=== PATIENT | female | born 1940 | race Caucasian/White ===

== ENCOUNTER → 2021-02-02 15:25 | Outpatient (BNVA) | payer MEDICARE, SELFPAY | PROVIDERS: Visit Provider Family Medicine | DX: E11.9 Type 2 diabetes mellitus without complications (principal); I10 Essential (primary) hypertension; E78.00 Pure hypercholesterolemia, unspecified | CPT/HCPCS: 80053; 80061; 83036; 84443; 85025 ==

== ENCOUNTER → 2021-09-06 14:20 | Outpatient (BNVA) | payer MEDICARE, SELFPAY | PROVIDERS: Visit Provider Family Medicine | DX: E11.9 Type 2 diabetes mellitus without complications (principal); E78.00 Pure hypercholesterolemia, unspecified; I10 Essential (primary) hypertension; F32.9 Major depressive disorder, single episode, unspecified | CPT/HCPCS: 80053; 80061; 83036; 85025 ==

== ENCOUNTER 2021-12-06 06:00 | Outpatient (RCR) | payer MEDICARE, SELFPAY | END 2021-12-23 23:59 | disposition home or self-care (01) | LOC: SPT 06:00 | PROVIDERS: PCP Family Medicine; Referring Provider Family Medicine; Visit Provider Family Medicine | DX: R27.0 Ataxia, unspecified (principal); M62.81 Muscle weakness (generalized) | CPT/HCPCS: 97110; 97112; 97162 ==

== ENCOUNTER → 2021-12-23 10:35 | Outpatient (BNVA) | payer MEDICARE, SELFPAY | PROVIDERS: PCP Family Medicine; Visit Provider Family Medicine | DX: E11.9 Type 2 diabetes mellitus without complications (principal) | CPT/HCPCS: 80053; 83036 ==

== ENCOUNTER 2021-12-24 06:00 | Outpatient (RCR) | payer MEDICARE, SELFPAY | END 2022-01-23 23:59 | disposition home or self-care (01) | LOC: SPT 06:00 | PROVIDERS: PCP Family Medicine; Referring Provider Family Medicine; Visit Provider Family Medicine | DX: R27.0 Ataxia, unspecified (principal) | CPT/HCPCS: 97110; 97112 ==

== ENCOUNTER 2022-01-13 13:34 | Outpatient (CLI) | payer MEDICARE, SELFPAY ==
--- NOTE | 2022-01-13 13:51 | MM_ITS ---
WS: [id number] BILATERAL 3D TOMOSYNTHESIS DIGITAL SCREENING MAMMOGRAPHY WITH CAD CLINICAL INFORMATION: SCREENING HISTORY: Screening mammogram. No current complaints. COMPARISON: None. TECHNIQUE: Bilateral CC and MLO views. FINDINGS: The breasts are composed of heterogeneous fibroglandular density tissue, which can limit the detectio n of small underlying mass lesions. Vascular calcification. Punctate and lucent centered calcificatio ns. No suspicious mass, asymmetry, calcifications, or architectural distortion. No evidence of malign pedro. MM/[id number] IMPRESSION: BI-RADS: 2-Benign FOLLOW UP: 1 Year Follow-up Recommend return to annual screening mammography.
== END 2022-01-13 13:35 | disposition home or self-care (01) ==
PROVIDERS: PCP Family Medicine; Visit Provider Family Medicine
DX: Z12.31 Encounter for screening mammogram for malignant neoplasm of breast (principal)
CPT/HCPCS: 77063; 77067

== ENCOUNTER → 2022-03-21 14:32 | Outpatient (BNVA) | payer MEDICARE, SELFPAY | PROVIDERS: PCP Family Medicine; Visit Provider Family Medicine | DX: R82.90 Unspecified abnormal findings in urine (principal); N39.0 Urinary tract infection, site not specified; E11.9 Type 2 diabetes mellitus without complications | CPT/HCPCS: 81000 ==

== ENCOUNTER → 2022-05-16 14:51 | Outpatient (BNVA) | payer MEDICARE, SELFPAY | PROVIDERS: PCP Family Medicine; Visit Provider Family Medicine | DX: E11.9 Type 2 diabetes mellitus without complications (principal); E78.00 Pure hypercholesterolemia, unspecified; I10 Essential (primary) hypertension | CPT/HCPCS: 80053; 80061; 83036 ==

== ENCOUNTER → 2022-10-04 11:41 | Outpatient (BNVA) | payer MEDICARE, SELFPAY | PROVIDERS: PCP Family Medicine; Visit Provider Family Medicine | DX: E78.00 Pure hypercholesterolemia, unspecified (principal); I10 Essential (primary) hypertension; E11.9 Type 2 diabetes mellitus without complications; M51.9 Unspecified thoracic, thoracolumbar and lumbosacral intervertebral disc disorder; F33.0 Major depressive disorder, recurrent, mild | CPT/HCPCS: 80061; 83036; 85025 ==

== ENCOUNTER 2023-01-17 13:52 | Outpatient (CLI) | payer MEDICARE, SELFPAY ==
--- NOTE | 2023-01-17 14:20 | MM_ITS ---
WS: [id number] BILATERAL 3D TOMOSYNTHESIS DIGITAL SCREENING MAMMOGRAPHY WITH CAD CLINICAL INFORMATION: SCREENING HISTORY: Screening mammogram. No current complaints. COMPARISON: 2021 TECHNIQUE: Bilateral CC and MLO views. FINDINGS: The breasts are composed of heterogeneous fibroglandular density tissue, which can limit the detectio n of small underlying mass lesions. No suspicious mass, asymmetry, calcifications, or architectural d istortion. No evidence of malignancy. Vascular calcification. Incidental punctate calcifications. MM/[id number] IMPRESSION: BI-RADS: 2-Benign FOLLOW UP: 1 Year Follow-up Recommend return to annual screening mammography.
== END 2023-01-17 13:53 | disposition home or self-care (01) ==
LOC: RAD 14:03 → MOBLMAM 14:19
PROVIDERS: PCP Family Medicine; Visit Provider Family Medicine
DX: Z12.31 Encounter for screening mammogram for malignant neoplasm of breast (principal)
CPT/HCPCS: 77063; 77067

== ENCOUNTER → 2023-03-28 12:14 | Outpatient (BNVA) | payer MEDICARE, SELFPAY | PROVIDERS: PCP Family Medicine; Visit Provider Family Medicine | DX: E11.9 Type 2 diabetes mellitus without complications (principal); I10 Essential (primary) hypertension | CPT/HCPCS: 80053; 83036; 85025 ==

== ENCOUNTER → 2023-04-13 15:57 | Outpatient (BNVA) | payer MEDICARE, SELFPAY | PROVIDERS: PCP Family Medicine; Visit Provider Family Medicine | DX: R39.9 Unspecified symptoms and signs involving the genitourinary system (principal) | CPT/HCPCS: 87077; 87086; 87184 ==

== ENCOUNTER 2023-05-09 12:01 | Outpatient (CLI) | payer MEDICARE, SELFPAY ==
--- NOTE | 2023-05-09 12:30 | CT_ITS ---
WS: [id number] CT ABDOMEN PELVIS TECHNIQUE: Contrast-enhanced CT of the abdomen and pelvis with coronal and sagittal reformatted image s. CLINICAL INFORMATION: pelvic pain and passing vaginal clots 12+ hours COMPARISON: None. DLP: 426.[address] scans at [facility] use at least one of these dose optimization techniques: automated e xposure control; mA and/or kV adjustment per patient size (includes targeted exams where dose is matc hed to clinical indication); or iterative reconstruction. FINDINGS: Prior cholecystectomy and hysterectomy. Evidence of prior sigmoid colon anastomosis. Lung bases are w ell aerated. Bibasilar atelectasis. Coronary calcification. Diffuse fatty infiltration of the liver. Normal portal vein and splenic vein. Fatty atrophy of the pancreas. Normal caliber abdominal aorta. A ortic calcification. Wall thickening with enhancement involving the duodenal C-loop suspicious for du odenitis. This can be followed up with endoscopy. Recommend clinical correlation. Enhancing lesion in the liver dome with central enhancement measuring 1.4 cm technically indeterminan t but suspicious for cavernous hemangioma. Incidental mild bilateral adrenal thickening. Normal renal parenchymal enhancement. No hydronephrosis. Bilateral renal cortical scarring. Bilateral renal cysts . Tiny fat-containing umbilical hernia. Small bladder cystocele. LEFT dorsal bladder diverticulum measuring 13 mm prior. Sigmoid colon anasto mosis. No evidence of high-grade small or large bowel obstruction. No abdominal or pelvic lymphadenop athy. No inguinal lymphadenopathy. IMPRESSION: 1. Prior cholecystectomy and hysterectomy. 2. Evidence of prior sigmoid resection with anastomosis. 3. Moderate esophageal renal hernia. Evidence of gastritis and duodenitis. 4. Diffuse fatty filtration of the liver. 5. Enhancing lesion in liver dome measuring 1.4 cm nonspecific but may represent cavernous hemangiom a. Recommend 3 to 6-month follow-up CT abdomen pelvis with liver protocol. 6. Bilateral renal cortical scarring with simple renal cysts. No hydronephrosis in either kidney. 7. Small bladder cystocele and small LEFT dorsal bladder diverticulum measuring 13 mm.
[2023-05-09] MEDS: iohexol 350 mg/mL 500 mL Btl (per mL) IV (12:47)
== END 2023-05-09 12:02 | disposition home or self-care (01) ==
LOC: RAD 12:01
PROVIDERS: PCP Family Medicine; Visit Provider Family Medicine
DX: N93.9 Abnormal uterine and vaginal bleeding, unspecified (principal); R10.2 Pelvic and perineal pain; Z90.49 Acquired absence of other specified parts of digestive tract; Z90.710 Acquired absence of both cervix and uterus; K44.9 Diaphragmatic hernia without obstruction or gangrene; K29.70 Gastritis, unspecified, without bleeding; K29.80 Duodenitis without bleeding; K76.9 Liver disease, unspecified; N28.1 Cyst of kidney, acquired; N81.10 Cystocele, unspecified; N32.3 Diverticulum of bladder
CPT/HCPCS: 74177; Q9967

== ENCOUNTER → 2023-06-22 11:23 | Outpatient (BNVA) | payer MEDICARE, SELFPAY | PROVIDERS: PCP Family Medicine; Visit Provider Family Medicine | DX: E11.9 Type 2 diabetes mellitus without complications (principal) | CPT/HCPCS: 80048 ==

== ENCOUNTER → 2023-10-20 15:05 | Outpatient (BNVA) | payer MEDICARE, SELFPAY | PROVIDERS: PCP Family Medicine; Visit Provider Obstetrics & Gynecology | DX: N93.9 Abnormal uterine and vaginal bleeding, unspecified (principal) | CPT/HCPCS: 81000; 87086 ==

== ENCOUNTER → 2024-01-22 11:03 | Outpatient (BNVA) | payer MEDICARE, SELFPAY | PROVIDERS: PCP Family Medicine; Visit Provider Family Medicine | DX: I10 Essential (primary) hypertension (principal) | CPT/HCPCS: 80053; 83036; 85025 ==

== ENCOUNTER → 2024-01-29 09:39 | Day surgery (SDC) | payer MEDICARE, SELFPAY | LOC: OPS 01-30 09:40 | PROVIDERS: PCP Family Medicine; Visit Provider Obstetrics & Gynecology | DX: Z01.818 Encounter for other preprocedural examination (principal) | CPT/HCPCS: 93005 ==

== ENCOUNTER 2024-02-06 11:06 | Observation (INO) | payer MEDICARE, SELFPAY ==
[2024-01-29 10:52] LABS: Basophils # 0.1 10^3/uL (0.0-0.1); Basophils % 0.9 %; Eosinophils # 0.3 10^3/uL (0.0-0.8); Eosinophils % 4.6 %; Hematocrit 42.3 % (36-47); Lymphocytes % 18.4 %; Mean Corpuscular HGB Conc 31.9 g/dL (30-55); Mean Corpuscular Hemoglobin 26.5 pg (27-33); Mean Corpuscular Volume 83.1 fl (85-98); Monocytes # 0.4 10^3/uL (0.2-0.9); Monocytes % 7.8 %; Neutrophils # 3.83 10^3/uL (1.8-7.7); Neutrophils % 67.9 %; Nucleated Red Blood Cells % 0 %; Platelet Count 147 10^3/cmm (157-399); Red Blood Count 5.09 10^6/uL (3.85-5.65); Red Cell Distribution Width 15.7 % (12.1-15.1); White Blood Count 5.64 10^3/uL (3.29-11.43)
--- NOTE | 2024-01-29 10:57 | ECG_ITS ---
[facility] Test Date: 2024-01-29 Pat Name: Loretta Francois Department: Room: Gender: Female [employer]: : 1940 Requested By: David Mata Order Number: [id number] Susie MD: Rex Diop M.D. Measurements Intervals [place] Rate: 63 P: 36 AZ: 184 QRS: -45 QRSD: 88 T: 90 QT: 372 QTc: 383 Interpretive Statements SINUS RHYTHM WITH MARKED SINUS ARRHYTHMIA LOW QRS VOLTAGE IN PRECORDIAL LEADS [QRS DEFLECTION < 1.0 mV IN CHEST LEADS] LEFT ANTERIOR FASCICULAR BLOCK [QRS AXIS <= -45, QR IN I, RS IN II] POSSIBLE ANTERIOR MYOCARDIAL INFARCTION , OF INDETERMINATE AGE [30 ms Q WAVE IN V3/V4, OR R < 0.2 mV IN V4] No previous ECG available for comparison Electronically Signed On 01-29-2024 14:17:16 CDT by Rex Diop M.D. [id number]
[2024-01-29 11:04] LABS: Charge for UA Resulting for Rev
[2024-01-29 11:08] LABS: Bilirubin Urine Negative (Negative); Blood Urine 2+ (Negative); Glucose Urine UA 3+ (Normal); Ketones Urine Negative (Negative); Leukocyte Esterase Urine Negative (Negative); Nitrate Urine Negative (Negative); Protein Urine Negative (Negative); Urine Appearance Clear (CLEAR); Urine Color Yellow (Yellow); Urobilinogen Urine 0.2 mg/dL (Negative)
[2024-01-29 11:13] LABS: Bacteria Urine Trace /hpf; Hyaline Casts Urine 0.81 /lpf; Squamous Epithelial Cell Urine 0-5 /hpf (0-5); WBC Urine 21-50 /hpf (0-5)
[2024-01-29 11:14] LABS: Specific Gravity, Urine 1.031 (1.005-1.030)
[2024-01-29 11:15] LABS: Add Urine Culture? Yes
[2024-01-29 11:18] LABS: Alanine Aminotransferase 20 U/L (0-33); Albumin Level 4.7 g/dL (3.5-5.2); Alkaline Phosphatase 138 U/L (35-105); Anion Gap 18.4 (5-19); Aspartate Amino Transferase 17 U/L (0-32); Blood Urea Nitrogen 27 mg/dL (8-23); Calcium 10.6 mg/dL (8.5-10.5); Carbon Dioxide 21 mmol/L (22-29); Chloride 96 mmol/L (98-107); Globulin 2.2 g/dL (1.3-4.6); Glucose 305 mg/dL (65-115); Osmolality Calculated 289 mOsm/kg (285-295); Potassium 4.4 mmol/L (3.5-5.1); Sodium 131 mmol/L (136-145); Total Bilirubin 0.7 mg/dL (0.15-1.2); Total Protein 6.9 g/dL (6.6-8.7)
--- NOTE | 2024-01-29 12:24 | P.ANESASSM_ITS ---
Pre-Anesthetic Assessment Height/Weight: Height 1.68 m Operation Date: 02/06/24 07:00 Proposed Procedures p Colpocleisis [place] Procedure 62783, N99.3(Not Applicable) - Darren Laguna MD Familial anesthetic complications: none Was Beta Gilma taken within 24 hours: N/A Was Clonidine taken within 24 hours: N/A Social No alcohol and No tobacco Exam alert, oriented x 3, clear to auscultation bilaterally and regular rate & rhythm Airway Submandibular: within normal limits Cervical ROM: within normal limits Mallampati: Class II Dentition: false CV/HEM Hypertension Metabolic Diabetes Mellitus HgB A1C 10.2 [facility] Lower Back Pain and Osteoarthritis/DJD Neuropsych Anxiety and Depression Anesthetic Plan ASA status: 3 Anesthesia: General Medications/Allergies Home Medications Medication Instructions Recorded Confirmed Last Taken Type ascorbic acid (vitamin C) 500 mg 500 mg PO DAILY 02/02/21 01/29/24 01/29/24 History capsule aspirin 81 mg tablet,delayed 81 mg PO DAILY 02/02/21 01/29/24 01/29/24 History release DME: Walker #1 ea 10/11/22 01/29/24 Unknown Rx blood sugar diagnostic (Accu-Chek #100 ea 07/12/23 01/29/24 Unknown Rx Neyda Plus test strips) ondansetron 4 mg disintegrating 4 mg PO Q8H PRN nausea and 07/12/23 01/29/24 Unknown Rx tablet vomiting #90 tabs potassium chloride 10 mEq 10 meq PO DAILY #90 caps 07/12/23 01/29/24 01/29/24 Rx capsule,extended release sertraline 50 mg tablet 50 mg PO DAILY #90 tabs 07/12/23 01/29/24 01/29/24 Rx lancing device with lancets kit #100 ea 07/13/23 01/29/24 Unknown Rx (Accu-Chek FastClix Lancing Device kit) neyda glucose monitor #1 ea 07/24/23 01/29/24 Unknown Rx glucometer #1 ea 08/01/23 01/29/24 Unknown Rx empagliflozin 10 mg tablet 10 mg PO DAILY #30 tabs 08/14/23 01/29/24 01/29/24 Rx (Jardiance) nystatin 100,000 unit/gram topical 1 applic topical BID vaginal 03/01/29/24 01/29/24 Rx cream irritation/infection #30 grams Ocuvite 01/29/24 01/29/24 History amlodipine 2.5 mg tablet 2.5 mg PO DAILY 01/29/24 01/29/24 01/29/24 History glimepiride 2 mg tablet 2 mg PO BID 01/29/24 01/29/24 01/29/24 History loratadine 5 mg-pseudoephedrine ER tab PO 01/29/24 Unknown History 120 mg tablet,extended release,12hr ([employer] D 12 Hour) oxybutynin chloride 5 mg tablet 5 mg PO BID 01/29/24 01/29/24 01/29/24 History Allergies Allergy/AdvReac Type Severity Reaction Status Date / Time trimethoprim Allergy dizziness Verified 01/29/24 08:06 KAI Inhibitors AdvReac na Verified 01/29/24 08:06 Sulfa (Sulfonamide AdvReac dizziness Verified 01/29/24 08:06 Antibiotics) [facility] Anesthesia Medical History OAB (overactive bladder) Depression GERD (gastroesophageal reflux disease) Hypercholesteremia Hypertension Diabetes Family History Father Diabetes Grandmother Diabetes Mother Hyperlipidemia Hypertension Social History Smoking and tobacco/nicotine status: never used tobacco/nicotine Alcohol intake: never Substance/Drug Use: never Data Anesthesia 01/29/24 10:40 01/29/24 10:40 Short CBC 01/29/24 Range/Units 10:40 WBC 5.64 (3.29-11.43) 10^3/uL Hgb 13.50 (11.27-16.99) g/dL Hct 42.3 (36-47) % MCV 83.1 L (85-98) fl Plt Count 147 L (157-399) 10^3/cmm Neut % (Auto) 67.9 % Neut # (Auto) 3.83 (1.8-7.7) 10^3/uL BMP 01/29/24 10:40 Sodium 131 L Potassium 4.4 Chloride 96 L Carbon Dioxide 21 L BUN 27 H Creatinine 0.8 Glucose 305 H Calcium 10.6 H Liver Function 01/29/24 Range/Units 10:40 Total Bilirubin 0.7 (0.15-1.2) mg/dL AST 17 (0-32) U/L ALT 20 (0-33) U/L Alkaline Phosphatase 138 H (35-105) U/L Albumin 4.7 (3.5-5.2) g/dL Urine 01/29/24 Range/Units 10:52 Urine Color Yellow (Yellow) Urine Appearance Clear (CLEAR) Urine pH 5.0 (5-7) Ur Specific [place] 1.031 H (1.005-1.030) Urine Protein Negative (Negative) Urine Glucose (UA) 3+ H (Normal) Urine Ketones Negative (Negative) Urine Nitrate Negative (Negative) Urine Bilirubin Negative (Negative) Ur Leukocyte Esterase Negative (Negative) Urine RBC 6-10 (0-2) /hpf Urine WBC 21-50 H (0-5) /hpf Cardiac Studies: 2 No Data to Display
[2024-02-06] VITALS (18 sets, daily range): BP systolic 123–202; BP diastolic 68–97; PULSE 64–90; RESP 15–30; TEMP 35.7–36.6; O2SAT 90–97; BMI 25.0
[2024-02-06 08:55] LABS: Glucose Point of Care 238 mg/dL (70-110)
[2024-02-06] MEDS: sodium chloride 0.9% 500 ML IV (08:57)
--- NOTE | 2024-02-06 09:02 | P.ANESUD_ITS ---
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 Proposed Procedure: Operation Date: 02/06/24 09:45 Proposed Procedures p Colpocleisis [place] Procedure 40150, N99.3(Not Applicable) - Darren Laguna MD Any changes to Pre-Anesthetic Assessment?: No Last Intake: Intake Last Liquid Date 02/05/24 Last Liquid Time 19:00 Last Solid Date 02/05/24 Last Solid Time 19:00 Labs Last 48hrs: > 8hrs Vitals: Temperature 97.7 F 02/06/24 08:33 Temperature Source Temporal Artery S can 02/06/24 08:33 Pulse Rate 68 02/06/24 08:33 Pulse Rhythm Regular 02/06/24 08:35 Pulse Strength 3+ Normal 02/06/24 08:35 Respiratory Rate 18 02/06/24 08:33 Blood Pressure 163/88 02/06/24 08:33 Blood Pressure Lilo n 113 02/06/24 08:33 Pulse Oximetry 96 02/06/24 08:33 Oxygen Delivery Me thod Room Air 02/06/24 08:35 Exam: Pre-Anes Outpt Exam: alert, oriented x 3, clear to auscultation bilat erally and regular rate & rhythm Cardiac Studies: No Data to Display
--- NOTE | 2024-02-06 09:05 | W.PM.OPSUD ---
Surgery/Procedure H&P Update DATE OF PROCEDURE: February 06, 2024 DATE H&P PERFORMED: 01/29/24 H&P UPDATE INFORMATION: I have reviewed H&P completed within last 30 days, I have examined patient prior to procedure and No changes to prior documentation PREOP DIAGNOSIS: complete vaginal vault prolapse PLANNED PROCEDURE: Operation Date: 02/06/24 09:45 Proposed Procedures p Colpocleisis [place] Procedure 57706, N99.3(Not Applicable) - Darren Laguna MD
[2024-02-06] MEDS: enoxaparin 30 mg/0.3 mL Syringe SUBCUT (09:15)
[2024-02-06] MEDS: ceFAZolin 2,000 mg SDV 2000 MG IVP (09:15)
[2024-02-06] MEDS: sodium chloride 0.9% 1,000 ML 30 ML IV (09:23)
[2024-02-06] MEDS: lidocaine-epi 2% PF 1:200,000 20 mL SDV INJECTION (09:57)
--- NOTE | 2024-02-06 11:08 | W.PM.BPON ---
Date of Procedure: 02/06/24 Surgeon: Darren Laguna MD Bilingual Instructor(s): Procedure(s) performed: Colpocleisis Findings of the procedure(s): Complete vaginal vault prolapse Estimated blood loss: 20 Specimen(s) removed: Post-operative diagnosis: Status post colpocleisis
--- NOTE | 2024-02-06 11:45 | ANE.PACU2 ---
Inpatient post-anesthesia follow up: Airway intact: Yes Vital signs: Temperature 96.2 F Pulse Rate 85 Respiratory Rate 17 Blood Pressure 178/73 Pulse Oximetry 93 Oxygen Delivery Me thod Room Air Oxygen Flow Rate 8 Fraction of Inspir ed Oxygen Hydration adequate: Yes Nausea and vomiting: No Pain level: 1 Mental status: Baseline
--- NOTE | 2024-02-06 12:06 | PC.NURSE ---
1152 - while transitioning pt from rney to bed in room 262 - this nurse noted approx quarter size drainage on OB pad - Called STEVO Brady, receiving nurse to room to visualize prior to transitioning pt to floor
[2024-02-06] MEDS: dextrose 5%-lactated ringers 1,000 ML 125 ML IV ×2 (14:50→22:44)
[2024-02-06] MEDS: ketorolac 30 mg/mL INJ IVP ×2 (14:51→20:39)
[2024-02-06] MEDS: oxybutynin 5 mg Tablet PO (17:16)
[2024-02-06] MEDS: docusate sodium 100 mg Capsule PO (17:17)
[2024-02-06] MEDS: glimepiride 2 mg Tablet PO (17:17)
[2024-02-06] MEDS: nystatin cream 30 gm 1 APPLIC TOPICAL (17:17)
--- NOTE | 2024-02-06 22:16 | PM.OP ---
Operative Report Date of procedure: February 06, 2024 Pre-op diagnosis: Complete vaginal vault prolapse Post-op diagnosis: same Procedure done: Complete colpocleisis Mid urethral sling Cystoscopy Implants: Coloplast Altis midurethral sling Surgeon: Darren Laguna MD Estimated blood loss (mL): 20 IV fluids (mL): 800 Urine output (mL): 150 Procedure: After obtaining informed consent, the patient was taken to the operating room and placed in the supine position, given general anesthesia, and prepped and draped in sterile fashion. The abdomen, vulva and vagina were prepped and draped in a sterile manner. A time out procedure was performed. The cervix was grasped and place on traction with tenaculum to mac the vagina. The vaginal mucosa was injected with 2% lidocaine with 1:200,000 epinephrine, just below the vaginal epithelium. Then a single incision midurethral sling was performed. A vertical midline incision was made beneath the midurethra, nearly 1.5 cm length. Careful submucosal dissection was performed bilaterally up to the interior portion of the inferior pubic ramus. The insertion of adductor longus tendon on the patient?s pubic ramus was identified as reference land rodríguez. Palpated the notch along the internal edge of ischiopubic ramus where the adductor longus tendon and the inferior pubic ramus meet. The Altis single incision sling (SIS) was selected. Then the needle of the SIS inserted aiming at the location of this notch. One of the integrated self-fixating tips place onto the needle by sliding it over the end of the needle. The needle/sling assembly was inserted toward the location of identified reference notch making sure that the flat of the handle is perpendicular to the desired path. The needle was tracked along the posterior surface of the ischiopubic ramus until the midline rodríguez on the mesh is approximately at the midline position under the urethra. The needle was removed and the same was repeated on the contralateral side until the appropriate sling tension under the urethra was achieved ensuring that the mesh lays flat. The needle was removed and vaginal incision was closed in a running interlocking fashion with 2-0 Vicryl. Then the vaginal mucosa was denuded off using electrocautery and Metzenbaum scissors. Using 0 Vicryl, transverse purse string stitches the vaginal apex were turned gradually inward and the superior and inferior margins and was brought all the way out to the introitus. The vaginal mucosa was pretty much completely closed off all the way up to the introitus. Indigo carmine was given. Then the Butler catheter was removed and cystoscope was inserted. The bladder was filled with sterile water. Complete evaluation of the bladder mucosa was performed noting no lacerations, dimpling, tears, bleeding of the mucosa or muscular layers. Both ureteral orifices were identified. Prompt excretion of urine from both ureteral orifices was noted. Cystoscope was withdrawn. The Butler catheter was replaced. Excellent hemostasis was obtained.
[2024-02-07] VITALS: BP 121/65; PULSE 84; RESP 16; TEMP 36.7; O2SAT 95
[2024-02-07] MEDS: ketorolac 30 mg/mL INJ IVP ×2 (02:39→09:17)
[2024-02-07 04:00] VITALS: BP 134/74; PULSE 64; RESP 16; TEMP 36.7; O2SAT 94
[2024-02-07 05:40] LABS: Hematocrit 34.6 % (36-47); Mean Corpuscular HGB Conc 31.2 g/dL (30-55); Mean Corpuscular Hemoglobin 26.2 pg (27-33); Mean Platelet Volume 10.7 fL (7.4-10.4); Platelet Count 140 10^3/cmm (157-399); Red Blood Count 4.12 10^6/uL (3.85-5.65); Red Cell Distribution Width 15.8 % (12.1-15.1); White Blood Count 7.41 10^3/uL (3.29-11.43)
[2024-02-07] MEDS: dextrose 5%-lactated ringers 1,000 ML 125 ML IV ×2 (06:13→19:31)
[2024-02-07 07:35] VITALS: BP 136/70; PULSE 64; RESP 17; TEMP 36.6; O2SAT 96
[2024-02-07] MEDS: amlodipine 5 mg Tablet 2.5 MG PO (09:16)
[2024-02-07] MEDS: nystatin cream 30 gm 1 APPLIC TOPICAL ×2 (09:17→18:56)
[2024-02-07] MEDS: potassium chloride ER 10 mEq Tablet PO (09:17)
[2024-02-07] MEDS: docusate sodium 100 mg Capsule PO ×2 (09:17→18:56)
[2024-02-07] MEDS: glimepiride 2 mg Tablet PO ×2 (09:17→18:56)
[2024-02-07] MEDS: oxybutynin 5 mg Tablet PO ×2 (09:17→18:56)
[2024-02-07] MEDS: ascorbic acid 500 mg Tablet PO (09:17)
[2024-02-07] MEDS: aspirin 81 mg EC Tablet PO (09:17)
[2024-02-07] MEDS: sertraline 50 mg Tablet PO (09:17)
[2024-02-07] MEDS: ibuprofen 800 mg tablet PO ×2 (11:09→19:31)
[2024-02-07 11:24] VITALS: BP 153/71; PULSE 54; RESP 16; TEMP 36.7; O2SAT 94
--- NOTE | 2024-02-07 14:31 | P.PN_ITS ---
Subjective 2 Subjective: Mrs. Francois 84-year-old female status post complete colpocleisis postoperative day 1.. Refers she having some bleeding Vitals/I&O/Wt Last Vital Signs Temp 97.7 F 02/08/24 07:52 Pulse 70 02/08/24 11:42 Resp 17 02/08/24 07:52 BP 157/82 02/08/24 11:42 Pulse Ox 94 02/08/24 11:42 O2 Del Method Room Air 02/08/24 11:42 O2 Flow Rate 8 02/06/24 11:15 02/07/24 02/08/24 02/08/24 22:59 06:59 14:59 Intake Total 360 / 1840 1078.333 / 2918.333 1240 / 1240 Output Total 1100 / 1100 1100 / 2200 800 / 800 Balance -740 / 740 -21.667 / 718.333 440 / 440 Weight last 48 hrs Weight 77.428 kg Weight 74.134 kg Physical Exam 2 Narrative: GA: Alert and oriented ?3. HEENT: WNL. Heart: Regular rate and rhythm. Lungs: Clear to auscultation bilaterally. Abdomen: Bowel sounds present, nontender. PUBLIC DEFENDER: spotting bleeding. Extremities: No edema, no cyanosis, no calves pain. Data 02/07/24 05:26 01/29/24 10:40 A&P Assessment and plan (1) Vaginal vault prolapse after hysterectomy: Status post colpocleisis day 1. She is afebrile hemodynamically stable., Refers some bleeding. Will continue to monitor bleeding and urine output Attestations 2 Medical Necessity Statement*: My professional opinion per admitting diagnosis Coding Level of Care Code Acute Code for g Fwd Diagnoses Vaginal vault prolapse after hysterectomy N99.3
[2024-02-07 15:37] VITALS: BP 147/71; PULSE 71; RESP 17; TEMP 36.8; O2SAT 93
[2024-02-07 20:00] VITALS: BP 150/78; PULSE 72; RESP 17; TEMP 37; O2SAT 93
[2024-02-08] VITALS: BP 148/76; PULSE 73; RESP 16; TEMP 37; O2SAT 95
[2024-02-08] MEDS: ibuprofen 800 mg tablet PO ×2 (03:11→11:31)
[2024-02-08] MEDS: dextrose 5%-lactated ringers 1,000 ML 125 ML IV ×2 (03:11→11:31)
[2024-02-08 04:00] VITALS: BP 150/75; PULSE 78; RESP 16; TEMP 37; O2SAT 95
[2024-02-08 07:52] VITALS: BP 172/81; PULSE 67; RESP 17; TEMP 36.5; O2SAT 94
[2024-02-08] MEDS: aspirin 81 mg EC Tablet PO (08:25)
[2024-02-08] MEDS: docusate sodium 100 mg Capsule PO ×2 (08:25→17:30)
[2024-02-08] MEDS: ascorbic acid 500 mg Tablet PO (08:25)
[2024-02-08] MEDS: potassium chloride ER 10 mEq Tablet PO (08:25)
[2024-02-08] MEDS: glimepiride 2 mg Tablet PO ×2 (08:26→17:30)
[2024-02-08] MEDS: oxybutynin 5 mg Tablet PO ×2 (08:26→17:29)
[2024-02-08] MEDS: sertraline 50 mg Tablet PO (08:26)
[2024-02-08] MEDS: amlodipine 5 mg Tablet 2.5 MG PO (08:26)
[2024-02-08] MEDS: nystatin cream 30 gm 1 APPLIC TOPICAL (08:26)
[2024-02-08 11:42] VITALS: BP 157/82; PULSE 70; O2SAT 94
--- NOTE | 2024-02-08 14:36 | PC.NURSE ---
This nurse contacts Dr. Laguna. He has not rounded yet today. States he will be here this afternoon. This nurse advises him that peck is still in. He states should have already been removed. No order noted and no note written stating this. Peck immediately removed per Dr. Laguna. States he will round this afternoon.
--- NOTE | 2024-02-08 15:39 | PC.NURSE ---
Pt incontinent in brief. Output charted as one void.
--- NOTE | 2024-02-08 15:47 | PC.NURSE ---
Post void residual [address] Laguna advised. New order received to replace peck. States pt will go home with peck. He will see pt at bedside after clinic.
[2024-02-08 15:53] VITALS: BP 177/90; PULSE 68; RESP 17; TEMP 36.6; O2SAT 96
--- NOTE | 2024-02-08 16:50 | P.DS_ITS ---
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 Francois 84-year-old female with a history of vaginal vault prolapse stage IV. Admitted for planned colpocleisis. The procedure was performed without complications. Overnight observation was uneventful. But patient refers significant bleed. She was kept an additional night to monitor bleeding. PVR was abnormal and she will be discharged home with Butler catheter and was instructed to return to the clinic Monday for Butler catheter removal. She has been afebrile hemodynamically stable. Tolerating diet well. Ambulating without difficulty. She was counseled regarding pelvic rest for 6 weeks (no sex, no tampons, no vaginal douches). Return to the emergency room if any fever, increased bleeding or pain. She was also advised regarding heavy weight lifting limit restrictions. Physical Exam Narrative: GA: Alert and oriented ?3. HEENT: WNL. Heart: Regular rate and rhythm. Lungs: Clear to auscultation bilaterally. Abdomen: Bowel sounds present, nontender. 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 Extremities: No edema, no cyanosis, no calves pain. Urinary Catheter Management: Butler: Cath Placed During This Visit: yes Urinary Catheter Date of Insertion: 02/08/24 Urinary Catheter Time of Insertion: 16:06 History History History 2 Term 2 0 Miscarriages/Ectopic 0 Living Children 2 Discharge Data Studies Completed and Pending Laboratory Results WBC 7.41 10^3/uL (3.29-11.43) 02/07/24 05:26 RBC 4.12 10^6/uL (3.85-5.65) 02/07/24 05:26 Hgb 10.80 g/dL (11.27-16.99) L 02/07/24 05:26 Hct 34.6 % (36-47) L 02/07/24 05:26 MCV 84.0 fl (85-98) L 02/07/24 05:26 MCH 26.2 pg (27-33) L 02/07/24 05:26 MCHC 31.2 g/dL (30-55) 02/07/24 05:26 RDW 15.8 % (12.1-15.1) H 02/07/24 05:26 Plt Count 140 10^3/cmm (157-399) L 02/07/24 05:26 MPV 10.7 fL (7.4-10.4) H 02/07/24 05:26 Neut % (Auto) 67.9 % 01/29/24 10:40 Lymph % (Auto) 18.4 % 01/29/24 10:40 [place] % (Auto) 7.8 % 01/29/24 10:40 Eos % (Auto) 4.6 % 01/29/24 10:40 Baso % (Auto) 0.9 % 01/29/24 10:40 Neut # (Auto) 3.83 10^3/uL (1.8-7.7) 01/29/24 10:40 Lymph # (Auto) 1.0 10^3/uL (0.8-4.8) 01/29/24 10:40 [place] # (Auto) 0.4 10^3/uL (0.2-0.9) 01/29/24 10:40 Eos # (Auto) 0.3 10^3/uL (0.0-0.8) 01/29/24 10:40 Baso # (Auto) 0.1 10^3/uL (0.0-0.1) 01/29/24 10:40 Nucleated RBC % (auto) 0 % 01/29/24 10:40 Nucleated RBCs # 0.0 /100WBC 01/29/24 10:40 Sodium 131 mmol/L (136-145) L 01/29/24 10:40 Potassium 4.4 mmol/L (3.5-5.1) 01/29/24 10:40 Chloride 96 mmol/L (98-107) L 01/29/24 10:40 Carbon Dioxide 21 mmol/L (22-29) L 01/29/24 10:40 Anion Gap 18.4 (5-19) 01/29/24 10:40 BUN 27 mg/dL (8-23) H 01/29/24 10:40 Creatinine 0.8 mg/dL (0.5-0.9) 01/29/24 10:40 GFR Calculation Not Reportable 01/29/24 10:40 Glucose 305 mg/dL (65-115) H 01/29/24 10:40 POC Glucose 238 mg/dL (70-110) H 02/06/24 08:52 Calculated Osmolality 289 mOsm/kg (285-295) 01/29/24 10:40 Calcium 10.6 mg/dL (8.5-10.5) H 01/29/24 10:40 Total Bilirubin 0.7 mg/dL (0.15-1.2) 01/29/24 10:40 AST 17 U/L (0-32) 01/29/24 10:40 ALT 20 U/L (0-33) 01/29/24 10:40 Alkaline Phosphatase 138 U/L (35-105) H 01/29/24 10:40 Total Protein 6.9 g/dL (6.6-8.7) 01/29/24 10:40 Albumin 4.7 g/dL (3.5-5.2) 01/29/24 10:40 Globulin 2.2 g/dL (1.3-4.6) 01/29/24 10:40 Urine Color Yellow (Yellow) 01/29/24 10:52 Urine Appearance Clear (CLEAR) 01/29/24 10:52 Urine pH 5.0 (5-7) 01/29/24 10:52 Ur Specific [place] 1.031 (1.005-1.030) H 01/29/24 10:52 Urine Protein Negative (Negative) 01/29/24 10:52 Urine Glucose (UA) 3+ (Normal) H 01/29/24 10:52 Urine Ketones Negative (Negative) 01/29/24 10:52 Urine Blood 2+ (Negative) A 01/29/24 10:52 Urine Nitrate Negative (Negative) 01/29/24 10:52 Urine Bilirubin Negative (Negative) 01/29/24 10:52 Urine Urobilinogen 0.2 mg/dL (Negative) 01/29/24 10:52 Ur Leukocyte Esterase Negative (Negative) 01/29/24 10:52 Urine RBC 6-10 /hpf (0-2) 01/29/24 10:52 Urine WBC 21-50 /hpf (0-5) H 01/29/24 10:52 Ur Squamous Epith Cells 0-5 /hpf (0-5) 01/29/24 10:52 Amorphous Sediment Not Reportable 01/29/24 10:52 Urine Bacteria Trace /hpf (NONE) 01/29/24 10:52 Hyaline Casts 0.81 /lpf 01/29/24 10:52 Blood Type O Positive 02/06/24 08:55 Rho(D) Type Rh positive 02/06/24 08:55 Antibody Screen Negative 02/06/24 08:55 Procedures Performed Colpocleisis Vitals Last Vital Signs Temp 97.8 F 02/08/24 15:53 Pulse 68 02/08/24 15:53 Resp 17 02/08/24 15:53 BP 177/90 02/08/24 15:53 Pulse Ox 96 02/08/24 15:53 O2 Del Method Room Air 02/08/24 15:53 O2 Flow Rate 8 02/06/24 11:15 Results Labs [facility]): Blood Type O Positive 02/06/24 Antibody Screen Negative 02/06/24 Hct 34.6 % (36-47) L 02/07/24 Hgb 10.80 g/dL (11.27-16.99) L 02/07/24 Rho(D) Type Rh positive 02/06/24 Plt Count 140 10^3/cmm (157-399) L 02/07/24 TSH 1.65 uIU/mL (0.27-4.20) 02/02/21 Hemoglobin A1c 10.2 % (4.0-6.0) H 01/22/24 Micro Urine Specimen 01/29/24 Discharge Plan Discharge Patient Disposition: Home Condition: Stable Prescriptions: New acetaminophen 325 mg capsule 325 mg PO Q4H PRN (Reason: fever or postoperative pain) Qty: 60 0RF ferrous sulfate [Iron (ferrous sulfate)] 325 mg (65 mg iron) tablet 325 mg PO BID Qty: 30 0RF nitrofurantoin monohyd/m-cryst [Macrobid] 100 mg capsule 100 mg PO BID 5 Days Qty: 10 0RF Rx Instructions: must administer with a meal/food ibuprofen 800 mg tablet 800 mg PO TID PRN (Reason: pain) Qty: 60 0RF Continued ascorbic acid (vitamin C) 500 mg capsule 500 mg PO DAILY aspirin 81 mg tablet,delayed release (DR/EC) 81 mg PO DAILY (DME) neyda glucose monitor See Rx Instructions .Route .MEDSUPPLY Qty: 1 0RF Rx Instructions: As directed nystatin 100,000 unit/gram cream 1 applic topical BID Qty: 30 1RF (DME) DME: Walker Unit See Rx Instructions .Route Qty: 1 0RF Rx Instructions: with wheels and a seat (DME) Accu-Chek Neyda Plus test strp Strip See Rx Instructions .Route Qty: 100 3RF Rx Instructions: to use once daily in acc-chek meter 90 day supply ondansetron 4 mg tablet,disintegrating 4 mg PO Q8H PRN (Reason: nausea and vomiting) Qty: 90 0RF potassium chloride 10 mEq capsule, extended release 10 meq PO DAILY Qty: 90 3RF sertraline 50 mg tablet 50 mg PO DAILY Qty: 90 1RF (DME) lancing device with lancets [Accu-Chek FastClix Lancing Dev] Kit See Rx Instructions .Route Qty: 100 3RF Rx Instructions: to use to check blood once daily 90 day supply (DME) glucometer See Rx Instructions .Route .MEDSUPPLY Qty: 1 0RF Rx Instructions: As directed Jardiance 10 mg tablet See Rx Instructions .ROUTE .COMPLEX Qty: 30 5RF Dose Instruction: TAKE 1 TABLET BY MOUTH EVERY DAY FOR DIABETES. TAKE THIS INSTEAD OF FARXIGA Rx Instructions: TAKE 1 TABLET BY MOUTH EVERY DAY FOR DIABETES. TAKE THIS INSTEAD OF FARXIGA [employer]-Itin D 12 Hour 5-120 mg tablet extended release 12 hr 5 tab PO DIRECTED Ocuvite 1 tab PO DAILY glimepiride 2 mg tablet 2 mg PO BID Rx Instructions: TAKE 1 TABLET BY MOUTH TWICE DAILY AT 8AM AND 4PM oxybutynin chloride 5 mg tablet 5 mg PO BID Rx Instructions: TAKE ONE TABLET BY MOUTH TWO TIMES A DAY amlodipine 2.5 mg tablet 2.5 mg PO DAILY Rx Instructions: TAKE ONE TABLET BY MOUTH EVERY DAY Discharge Orders: Discharge Order (Routine); Ordered 02/08/24 Ordered By: Darren Laguna Referrals: Darren Laguna MD [Physician] - 03/28/24 3:00 pm Yusuf Currie MD [Primary Care Provider] - 02/19/24 10:00 am Discharge Diet: Soft Mechanical Discharge Activity: Limit activity as instructed Patient Instructions: Rectocele (GEN), Cystocele (GEN), Acute Wound Care (DC), Chronic Urinary Retention in Women (GEN), Anterior Vaginal Repair (GEN), Posterior Vaginal Repair (GEN), Enterocele (GEN), Enterocele Repair (GEN), Opioid Safety, Post Anesthesia Care Activity Restrictions/Additional Instructions: 1. Please call [facility] on next working day to make your post-operative appointment in 2 weeks and Monday at the clinic to have Fol ey removal. 2. Please stay home until you come back to the clinic on first post- hospatilization check up. 3. Please follow instructions on your medications CAREFULLY. 4. If you have abdominal incision, do not cover it unless dressing is necessary because of drainage. OK to shower, but avoid bath. Leave steri-strips until they fall off. If they are still on one week after surgery, you may remove them. 5. If you had vaginal surgery or vaginal repair, Dr. Laguna may instruct you to take SITZ bath. 6. Yellow, blood tinged odorous vaginal discharge is usually normal after hysterectomy or vaginal surgeries. 7. No SEXUAL INTERCOURSE, tampons, or douches until you are completely released from the post-operative care. 8. Avoid constipation by eating right and maybe using some Metamucil or Milk of Magnesia. 9. All prescription refills are given during the working hours. Please do no wait till it runs out. Call the clinic at [phone] before your medication runs out. The clinic will get in touch with your doctor to prescribe medications if necessary. 10. Please remain within 40 mile radius from our hospital because emergencies do happen now and then during the post-operative period. 11. If you have stairs at home, take one step at a time slowly and minimize the number of trips. It helps to stay in one floor for the next few days. No lifting except what you can lift by one hand until you are released from the post-operative care. 12. Driving is discouraged until you are well healed. It may be 3-4 weeks before you feel strong enough to drive. You should be able to turn and look through the rear window without pain and you should be able to push the brake pedal very hard without pain before you drive. No fast rules, but SAFETY should be your primary concern. DO NOT drive if you are on sedating medications such as narcotics. 13. Call the clinic (during working hours) to make urgent appointment or go to the Emergency room, if any of the following occurs: i. Vaginal bleeding becomes heavy, more than a period. ii. Incision becomes red and sore, or drains pus. iii. Your TEMPERATURE is over 100.4F or you have chill. iv. IV site becomes red and swollen (a little ``knot?? is usually OK) v. Persistent nausea and vomiting vi. Persistent constipation or diarrhea vii. Rash or allergic reaction to medications. 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
--- NOTE | 2024-02-08 16:53 | PC.NURSE ---
Dr. Laguna at bedside. Informs pt that she will be going home with peck. Chris instructed by this nurse how to empty peck bag. She verbalizes understanding.
--- NOTE | 2024-02-08 17:32 | PC.NURSE ---
Discharge instructions provided to pt and eduardo. NO questions or concerns at this time.
[2024-02-08 17:33] VITALS: BP 177/90; PULSE 68; RESP 17; TEMP 36.6; O2SAT 96
== END 2024-02-08 17:42 | disposition home or self-care (01) ==
LOC: MEDSURG 11:08
PROVIDERS: Admitting Provider Obstetrics & Gynecology; PCP Family Medicine; Visit Provider Obstetrics & Gynecology
PROC: (CPT 57120; principal; 2024-02-06 09:45)
DX: N99.3 Prolapse of vaginal vault after hysterectomy (principal); R33.9 Retention of urine, unspecified; E11.9 Type 2 diabetes mellitus without complications; I10 Essential (primary) hypertension; F32.A Depression, unspecified; F41.9 Anxiety disorder, unspecified; Z79.84 Long term (current) use of oral hypoglycemic drugs; Z79.82 Long term (current) use of aspirin
CPT/HCPCS: 57120; 36415; 36416; 51702; 80053; 81003; 81015; 82962; 85025; 85027; 86850; 86900; 87086; C1713; G0378; J0690; J1100; J1650; J1885; J2405; J2704; J3010; J7030; J7040; J7121

== ENCOUNTER → 2024-02-19 11:09 | Outpatient (BNVA) | payer MEDICARE, SELFPAY | PROVIDERS: PCP Family Medicine; Visit Provider Family Medicine | DX: E11.9 Type 2 diabetes mellitus without complications (principal); R31.0 Gross hematuria | CPT/HCPCS: 80053; 85025 ==

== ENCOUNTER → 2024-08-26 11:51 | Outpatient (BNVA) | payer MEDICARE, SELFPAY | PROVIDERS: PCP Family Medicine; Visit Provider Family Medicine | DX: E11.9 Type 2 diabetes mellitus without complications (principal) | CPT/HCPCS: 80053; 83036; 85025 ==

== ENCOUNTER 2024-10-09 14:32 | Inpatient (IN) | payer MEDICARE, SELFPAY ==
[2024-10-09] VITALS (10 sets, daily range): BP systolic 128–187; BP diastolic 62–94; PULSE 70–89; RESP 12–19; TEMP 36.4–37.6; O2SAT 92–98; BMI 26.5
--- NOTE | 2024-10-09 14:44 | XR_ITS ---
WS: [id number] Portable AP upright chest, 10/09/2024 Clinical Data: Weakness Comparison: None. Findings: No nodules, masses or effusions are seen. The right diaphragm is elevated. The heart is normal. The pulmonary vascularity is not increased. No pneumonia or pneumothorax is seen. The aortic arch and descending thoracic aorta shows tortuosity. There are cholecystectomy clips in the right upper quadrant. XR/XR chest 1V portable [id number] Impression: 1. Atherosclerosis. 2. Elevated right diaphragm.
--- NOTE | 2024-10-09 14:44 | CT_ITS ---
WS: [id number] CT HEAD NONCONTRAST HISTORY: Weakness TECHNIQUE: Contiguous axial imaging performed through the brain. Bone and soft tissue windows. Sagittal and coronal reformats reviewed. All CT scans at [facility] use at least one of these dose optimization techniques: automated exposure control; mA and/or kV adjustment per patient size (includes targeted exams where dose is matched to clinical indication); or iterative reconstruction. DLP: 1038.58 mGy.cm COMPARISON: None available. No acute intracranial hemorrhage, midline shift or mass effect. Mild symmetric atrophy and mild small vessel disease. No prior infarct. Mild cerebellar atrophy. Ventricles: Normal size with no hydrocephalus. No inferior displacement of the cerebellar tonsils. Paranasal sinuses: As visualized are clear. Mastoid air cells: Well pneumatized. Calvarium and scalp: Hyperostosis frontalis interna. No fracture. No destructive bone lesions. No scalp abnormality. Calcified plaque in the intracranial carotid arteries. CT/CT head wo con* [id number] IMPRESSION: 1. No acute intracranial hemorrhage or edema. 2. Mild cerebral atrophy and small vessel ischemic changes.
--- NOTE | 2024-10-09 14:44 | ECG_ITS ---
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 Measurements Intervals [place] Rate: 80 P: 140 AR: 177 QRS: -27 QRSD: 90 T: 159 QT: 349 QTc: 405 Interpretive Statements SINUS RHYTHM WITH SINUS ARRHYTHMIA POSSIBLE LEFT ATRIAL ENLARGEMENT [-0.1mV P-WAVE IN V1/V2] POSSIBLE ANTERIOR MYOCARDIAL INFARCTION , OF INDETERMINATE AGE [30 ms Q WAVE IN V3/V4, OR R < 0.2 mV IN V4] MODERATE T-WAVE ABNORMALITY, CONSIDER LATERAL ISCHEMIA [-0.1+ mV T-WAVE IN I/aVL/V5/V6] Compared to ECG 01/29/2024 10:57:18 T-wave abnormality now present Possible ischemia now present Left anterior fascicular block no longer present Myocardial infarct finding still present Electronically Signed On 10-09-2024 21:18:33 CDT by Kendall Reveles M.D. [email or web address]
[2024-10-09 15:19] LABS: Basophils # 0.1 10^3/uL (0.0-0.1); Basophils % 0.7 %; Eosinophils # 0.1 10^3/uL (0.0-0.8); Hematocrit 42.7 % (36-47); Lymphocytes # 0.6 10^3/uL (0.8-4.8); Mean Corpuscular HGB Conc 31.9 g/dL (30-55); Mean Corpuscular Hemoglobin 25.9 pg (27-33); Mean Corpuscular Volume 81.3 fl (85-98); Mean Platelet Volume 10.7 fL (7.4-10.4); Monocytes # 0.8 10^3/uL (0.2-0.9); Monocytes % 11.4 %; Neutrophils # 5.49 10^3/uL (1.8-7.7); Neutrophils % 77.5 %; Nucleated Red Blood Cells % 0 %; Platelet Count 155 10^3/cmm (157-399); Red Blood Count 5.25 10^6/uL (3.85-5.65); Red Cell Distribution Width 15.2 % (12.1-15.1); White Blood Count 7.09 10^3/uL (3.29-11.43)
[2024-10-09 15:25] LABS: Bacteria Urine 4+ /hpf; Hyaline Casts Urine 2.87 /lpf; Squamous Epithelial Cell Urine 0-5 /hpf (0-5); WBC Urine >100 /hpf (0-5)
--- NOTE | 2024-10-09 15:25 | W.ED.WEAKNES ---
HPI - Weakness General: Chief complaint: Weakness Stated complaint: Weak, Dizzy,Lethargic Time Seen by Provider: 10/09/24 14:37 History of Present Illness: 84-year-old female with a history of overactive bladder, recurrent urinary tract infections, depression, GERD, hyperlipidemia, hypertension and diabetes who presents to the emergency room by ambulance from assisted living with generalized weakness to the point she could not get out of bed make it to the bathroom, dizziness and nausea for the last couple of days. She describes being lightheaded and weak. Her vital signs are normal on presentation. O2 sats are borderline. She states she has had quite a bit of cough. She feels more short of breath. No focal motor deficits. No altered mental status. No chest pain. No abdominal pain. [facility] ED PFS: Medical History OAB (overactive bladder) Depression GERD (gastroesophageal reflux disease) Hypercholesteremia Hypertension Diabetes Surgical History History of colpocleisis (~02/06/24) performed by Jase at [facility] 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 History of knee surgery History of colon surgery History of hysterectomy Family History Father Diabetes Grandmother Diabetes Mother Hyperlipidemia Hypertension Social History Smoking and tobacco/nicotine status: never used tobacco/nicotine Alcohol intake: never Substance/Drug Use: never Physical Exam Narrative: EXAM NARRATIVE: General: Alert, no acute distress. Skin: Warm, dry. Head: Normocephalic, atraumatic. Neck: Supple, trachea midline. Eye: Extraocular movements are intact. Ears, nose, mouth and throat: Dry oral mucosa Cardiovascular: Regular, Normal peripheral perfusion. Capillary refill is brisk Respiratory: Lungs are clear to auscultation, respirations are non-labored, breath sounds are equal, Symmetrical chest wall expansion. Gastrointestinal: Soft, Nontender, Non distended, Normal bowel sounds. Musculoskeletal: Normal ROM, no deformity. Neurological: Alert, No focal neurological deficit observed. Psychiatric: Cooperative, appropriate mood & affect. Normal Course Vital Signs: Vital signs: Vital Signs Temperature 98.1 F 10/09/24 14:35 Pulse Rate 89 10/09/24 14:35 Respiratory Rate 12 10/09/24 14:35 Blood Pressure 152/76 10/09/24 14:35 Pulse Oximetry 92 10/09/24 14:35 Oxygen Delivery Me thod Room Air 10/09/24 14:35 MDM - Weakness Medical Decision Making Medical decision making: Differential diagnosis for patient presenting with generalized weakness including but not limited to and based on the above HPI, review of systems and physical exam: Sepsis. Dehydration. Renal failure. Electrolyte abnormalities. Anemia. Congestive heart failure. Hypotension. Coronary syndrome. Hepatitis. Cirrhosis. Infections such as pneumonia, urinary tract infection, Tick bourne illness, Cellulitis, Viral infections including influenza and Covid-19. Workup: labwork and lab/exam driven imaging ordered to evaluate, rule in and rule out above pathologies. EKG: Time 1435. Rate 80. Normal sinus rhythm, nonspecific ST changes, no ectopy, normal RI & QRS intervals, This was reviewed and interpreted by myself the ER physician at 1440. Lab Review: Laboratory results were reviewed and interpreted by myself the emergency room physician. No leukocytosis. No anemia. Mild elevation in BUN but this is actually below her baseline. Patient has a nitrate positive greater than 100 white count 4+ bacteria urinary tract infection and she is also COVID-positive. Chest x-ray: No acute process. No infiltrate. No pneumothorax. This was reviewed and interpreted by myself the emergency room physician. I also reviewed the radiology report. I reviewed the patient's medical record. Reexamination: Patient continues to have generalized weakness to the point where she can barely stand. No increased work of breathing. No altered mental status. No focal motor deficits. No altered mental status. Consultation: I spoke with Dr. Joseph who is on-call for the hospital service who agrees to admission. Assessment and plan: Urinary tract infection COVID Dehydration Generalized weakness ?IV cefepime. IV normal saline bolus. -I discussed the patient with the hospitalist on-call who is admitting the patient. - Discussed findings and plan with patient. Answered any questions. - All laboratory values were reviewed and interpreted personally by myself, the ER physician - All imaging was reviewed and interpreted personally by myself, the ER physician. - Evaluation and treatment of this problem were appropriate in the emergency setting Lab Data 10/09/24 14:23 10/09/24 14:23 Radiology Impressions Chest X-Ray 10/09/24 14:44 Impression: 1. Atherosclerosis. 2. Elevated right diaphragm. Head CT 10/09/24 14:44 IMPRESSION: 1. No acute intracranial hemorrhage or edema. 2. Mild cerebral atrophy and small vessel ischemic changes. Laboratory Results WBC 7.09 10^3/uL (3.29-11.43) 10/09/24 14:23 RBC 5.25 10^6/uL (3.85-5.65) 10/09/24 14:23 Hgb 13.60 g/dL (11.27-16.99) 10/09/24 14:23 Hct 42.7 % (36-47) 10/09/24 14:23 MCV 81.3 fl (85-98) L 10/09/24 14:23 MCH 25.9 pg (27-33) L 10/09/24 14:23 MCHC 31.9 g/dL (30-55) 10/09/24 14:23 RDW 15.2 % (12.1-15.1) H 10/09/24 14:23 Plt Count 155 10^3/cmm (157-399) L 10/09/24 14:23 MPV 10.7 fL (7.4-10.4) H 10/09/24 14:23 Neut % (Auto) 77.5 % 10/09/24 14:23 Lymph % (Auto) 9.0 % 10/09/24 14:23 [place] % (Auto) 11.4 % 10/09/24 14:23 Eos % (Auto) 1.0 % 10/09/24 14:23 Baso % (Auto) 0.7 % 10/09/24 14:23 Neut # (Auto) 5.49 10^3/uL (1.8-7.7) 10/09/24 14:23 Lymph # (Auto) 0.6 10^3/uL (0.8-4.8) L 10/09/24 14:23 [place] # (Auto) 0.8 10^3/uL (0.2-0.9) 10/09/24 14:23 Eos # (Auto) 0.1 10^3/uL (0.0-0.8) 10/09/24 14:23 Baso # (Auto) 0.1 10^3/uL (0.0-0.1) 10/09/24 14:23 Nucleated RBC % (auto) 0 % 10/09/24 14:23 Nucleated RBCs # 0.0 /100WBC 10/09/24 14:23 Sodium 135 mmol/L (136-145) L 10/09/24 14:23 Potassium 4.3 mmol/L (3.5-5.1) 10/09/24 14:23 Chloride 101 mmol/L (98-107) 10/09/24 14:23 Carbon Dioxide 17 mmol/L (22-29) L 10/09/24 14:23 Anion Gap 21.3 (5-19) H 10/09/24 14:23 BUN 23 mg/dL (8-23) 10/09/24 14:23 Creatinine 0.9 mg/dL (0.5-0.9) 10/09/24 14:23 GFR Calculation Not Reportable 10/09/24 14:23 Glucose 118 mg/dL (65-115) H 10/09/24 14:23 Calculated Osmolality 285 mOsm/kg (285-295) 10/09/24 14:23 Lactic Acid 1.3 mmol/L (0.5-2.2) 10/09/24 14:23 Calcium 10.1 mg/dL (8.5-10.5) 10/09/24 14:23 Total Bilirubin 1.1 mg/dL (0.15-1.2) 10/09/24 14:23 AST 14 U/L (0-32) 10/09/24 14:23 ALT 12 U/L (0-33) 10/09/24 14:23 Alkaline Phosphatase 102 U/L (35-105) 10/09/24 14:23 Troponin T Baseline 11 ng/L (0-10) H 10/09/24 14:23 Troponin T 120 Minute 11.55 ng/L (0-10) H 10/09/24 16:12 Delta Troponin T 0.55 ABS# (0-10) 10/09/24 16:12 C-Reactive Protein 46.3 mg/L (0.0-4.9) H 10/09/24 14:23 Total Protein 7.6 g/dL (6.6-8.7) 10/09/24 14:23 Albumin 4.6 g/dL (3.5-5.2) 10/09/24 14: Globulin 3.0 g/dL (1.3-4.6) 10/09/24 14:23 Procalcitonin 0.21 ng/mL (0-0.5) 10/09/24 14:23 Urine Color Yellow (Yellow) 10/09/24 15:02 Urine Appearance Error (CLEAR) A 10/09/24 15:02 Urine pH 5.0 (5-7) 10/09/24 15:02 Ur Specific [place] 1.023 (1.005-1.030) 10/09/24 15:02 Urine Protein 1+ (Negative) A 10/09/24 15:02 Urine Glucose (UA) 3+ (Normal) H 10/09/24 15:02 Urine Ketones Negative (Negative) 10/09/24 15:02 Urine Blood 1+ (Negative) A 10/09/24 15:02 Urine Nitrate Positive (Negative) A 10/09/24 15:02 Urine Bilirubin Negative (Negative) 10/09/24 15:02 Urine Urobilinogen 0.2 mg/dL (Negative) 10/09/24 15:02 Ur Leukocyte Esterase 2+ (Negative) A 10/09/24 15:02 Urine RBC 6-10 /hpf (0-2) 10/09/24 15:02 Urine WBC >100 /hpf (0-5) H 10/09/24 15:02 Ur Squamous Epith Cells 0-5 /hpf (0-5) 10/09/24 15:02 Amorphous Sediment Not Reportable 10/09/24 15:02 Urine Bacteria 4+ /hpf (NONE) H 10/09/24 15:02 Hyaline Casts 2.87 /lpf 10/09/24 15:02 Urine Yeast 1+ /hpf H 10/09/24 15:02 Influenza A (PCR) Negative (Negative) 10/09/24 15:00 Influenza Type B (PCR) Negative (Negative) 10/09/24 15:00 RSV (PCR) Negative (Negative) 10/09/24 15:00 SARS-CoV-2 (PCR) Positive (Negative) A 10/09/24 15:00 All radiology interpretation(s) finalized by discharge Discharge Plan Discharge Patient Disposition: Admitted As Inpatient Clinical Impression: Urinary tract infection, Dehydration, COVID-19, Generalized weakness Condition: Stable Coding Level of Care Code ED Cooker Meal for Chg Fwd Related Data Home Medications ?Medication ?Instructions ?Recorded ?Confirmed aspirin 81 mg tablet,delayed 81 mg PO DAILY 02/02/21 10/09/24 release amlodipine 2.5 mg tablet 2.5 mg PO DAILY 10/09/24 10/09/24 insulin glargine 100 unit/mL (3 20 unit SUBCUT QAM 10/09/24 10/09/24 mL) subcutaneous pen (Lantus Solostar U-100 Insulin) metformin 500 mg tablet 500 mg PO DAILY 10/09/24 10/09/24 potassium chloride 10 mEq 10 meq PO DAILY 10/09/24 10/09/24 capsule,extended release sertraline 50 mg tablet 50 mg PO DAILY 10/09/24 10/09/24 Previous Rx's ?Medication ?Instructions ?Recorded acetaminophen 325 mg capsule 325 mg PO Q4H PRN fever or 02/08/24 postoperative pain #60 caps empagliflozin 10 mg tablet 5 mg (1/2 x 10 mg) PO DAILY #30 04/01/24 (Jardiance) tabs oxybutynin chloride 5 mg tablet 5 mg PO BID #180 tabs 05/06/24 glipizide 5 mg tablet 5 mg PO DAILY #60 tabs 07/02/24 Allergies Allergy/AdvReac Type Severity Reaction Status Date / Time trimethoprim Allergy dizziness Verified 08/26/24 11:11 KAI Inhibitors AdvReac na Verified 08/26/24 11:11 Sulfa (Sulfonamide AdvReac dizziness Verified 08/26/24 11:11 Antibiotics)
[2024-10-09 15:45] LABS: Troponin(5th) Baseline 11 ng/L (0-10)
[2024-10-09 15:47] LABS: Lactic Sepsis W/Reflex 1.3 mmol/L (0.5-2.2)
[2024-10-09 15:48] LABS: Bilirubin Urine Negative (Negative); Blood Urine 1+ (Negative); Glucose Urine UA 3+ (Normal); Ketones Urine Negative (Negative); Leukocyte Esterase Urine 2+ (Negative); Nitrate Urine Positive (Negative); Protein Urine 1+ (Negative); Specific Gravity, Urine 1.023 (1.005-1.030); UA Slide Review UA Slide Review Perf; Urine Appearance Error (CLEAR); Urine Color Yellow (Yellow); Urobilinogen Urine 0.2 mg/dL (Negative)
[2024-10-09 15:49] LABS: Add Urine Culture? Yes
[2024-10-09 15:56] LABS: Influenza A NEGATIVE (Negative); Influenza B NEGATIVE (Negative); Respiratory Syncytial Virus Ce NEGATIVE (Negative)
--- NOTE | 2024-10-09 16:29 | ECG_ITS ---
[facility] Test Date: 2024-10-09 Pat Name: Loretta Francois Department: Room: Gender: Female Site Monitor: : 1940 Requested By: Earline Bloom Order Number: [id number] Susie MD: Kendall Reveles M.D. Measurements Intervals [place] Rate: 71 P: 61 MD: 184 QRS: -58 QRSD: 96 T: 85 QT: 373 QTc: 408 Interpretive Statements SINUS RHYTHM WITH SINUS ARRHYTHMIA LEFT AXIS DEVIATION [QRS AXIS < -30] LOW QRS VOLTAGE IN EXTREMITY LEADS [QRS DEFLECTION < 0.5 mV IN LIMB LEADS] PATTERN CONSISTENT WITH PULMONARY DISEASE Compared to ECG 10/09/2024 14:35:27 Left-axis deviation now present Low QRS voltage now present Myocardial infarct finding no longer present T-wave abnormality no longer present Possible ischemia no longer present Electronically Signed On 10-09-2024 21:40:51 CDT by Kendall Reveles M.D. [email or web address] [id number]
[2024-10-09 16:40] LABS: Alanine Aminotransferase 12 U/L (0-33); Albumin Level 4.6 g/dL (3.5-5.2); Alkaline Phosphatase 102 U/L (35-105); Anion Gap 21.3 (5-19); Aspartate Amino Transferase 14 U/L (0-32); Blood Urea Nitrogen 23 mg/dL (8-23); C Reactive Protein 46.3 mg/L (0.0-4.9); Calcium 10.1 mg/dL (8.5-10.5); Carbon Dioxide 17 mmol/L (22-29); Chloride 101 mmol/L (98-107); Creatinine Clr Calc Pharmacy 46.6129; Glucose 118 mg/dL (65-115); Osmolality Calculated 285 mOsm/kg (285-295); Potassium 4.3 mmol/L (3.5-5.1); Sodium 135 mmol/L (136-145); Total Bilirubin 1.1 mg/dL (0.15-1.2); Total Protein 7.6 g/dL (6.6-8.7)
[2024-10-09 16:42] LABS: SARS-CoV-2 PCR Positive (Negative)
[2024-10-09 16:45] LABS: Troponin 5 2HR 11.55 ng/L (0-10); Troponin 5 2HR Delta 0.55 ABS# (0-10)
[2024-10-09 16:46] LABS: Procalcitonin 0.21 ng/mL (0-0.5)
[2024-10-09] MEDS: cefepime 2,000 mg SDV 2000 MG IVP (16:51)
[2024-10-09] MEDS: sodium chloride 0.9% 1,000 ML 999 ML IV (17:01)
--- NOTE | 2024-10-09 17:40 | PC.NURSE ---
pt report called to med surg, given to nurse Nidhi. 1739.
--- NOTE | 2024-10-09 17:45 | PM.HP ---
Providers/Chief Complaint Admitting Physician: Laurie Joseph MD Primary Care Provider: Yusuf Currie MD Chief Complaint: Weak, Dizzy,Lethargic History of Present Illness Loretta Francois is a 84 year old female with past medical history of hypertension, hyperlipidemia, type 2 diabetes mellitus, GERD, depression, overactive bladder, recurrent UTIs presented with complaint of severe weakness, fatigue, lightheadedness, unable to walk since 3 days. Denies any complaint of fever, cough, cold, chest pain, shortness of breath, palpitations, dizziness, nausea/vomiting, diarrhea or urinary complaints. Denies any history of sick contact or recent travel. Review of Systems General: Reports: 10 or more systems reviewed and unremarkable except in HPI and below Medications/Allergies Home Medications ?Medication ?Instructions ?Recorded ?Confirmed ?Last Taken ?Type aspirin 81 mg tablet,delayed 81 mg PO DAILY 02/02/21 10/09/24 10/09/24 History release acetaminophen 325 mg capsule 325 mg PO Q4H PRN fever or 02/08/24 10/09/24 10/09/24 Rx postoperative pain #60 caps empagliflozin 10 mg tablet 5 mg (1/2 x 10 mg) PO DAILY #30 04/01/24 10/09/24 10/09/24 Rx (Jardiance) tabs oxybutynin chloride 5 mg tablet 5 mg PO BID #180 tabs 05/06/24 10/09/24 10/09/24 Rx glipizide 5 mg tablet 5 mg PO DAILY #60 tabs 07/02/24 10/09/24 10/09/24 Rx amlodipine 2.5 mg tablet 2.5 mg PO DAILY 10/09/24 10/09/24 10/09/24 History insulin glargine 100 unit/mL (3 20 unit SUBCUT QAM 10/09/24 10/09/24 10/09/24 History mL) subcutaneous pen (Lantus Solostar U-100 Insulin) metformin 500 mg tablet 500 mg PO DAILY 10/09/24 10/09/24 10/09/24 History potassium chloride 10 mEq 10 meq PO DAILY 10/09/24 10/09/24 10/09/24 History capsule,extended release sertraline 50 mg tablet 50 mg PO DAILY 10/09/24 10/09/24 10/09/24 History Allergies Allergy/AdvReac Type Severity Reaction Status Date / Time trimethoprim Allergy dizziness Verified 08/26/24 11:11 KAI Inhibitors AdvReac na Verified 08/26/24 11:11 Sulfa (Sulfonamide AdvReac dizziness Verified 08/26/24 11:11 Antibiotics) PFSH Acute PFSH: Medical History OAB (overactive bladder) Depression GERD (gastroesophageal reflux disease) Hypercholesteremia Hypertension Diabetes Surgical History History of colpocleisis (~02/06/24) performed by Jase at [facility] 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 History of knee surgery History of colon surgery History of hysterectomy Family History Father Diabetes Grandmother Diabetes Mother Hyperlipidemia Hypertension Social History Smoking and tobacco/nicotine status: never used tobacco/nicotine Alcohol intake: never Substance/Drug Use: never Vitals/I&O/Wt Last Vital Signs Temp 98.1 F 10/09/24 14:35 Pulse 70 10/09/24 17:00 Resp 12 10/09/24 14:35 BP 164/62 10/09/24 17:00 Pulse Ox 92 10/09/24 17:00 O2 Del Method Room Air 10/09/24 17:00 Weight last 48 hrs Weight 72.575 kg Physical Exam Narrative: She is alert awake oriented x 3, anxious Chest clear to auscultation bilaterally Cardiovascular normal heart sounds no murmurs Abdomen soft nontender nondistended normal bowel sounds Extremities no edema noted bilateral lower extremity Data 10/09/24 14:23 10/09/24 14:23 Micro: Microbiology 10/09/24 15:09 Blood Culture - Preliminary Blood SPECIMEN COLLECTED 10/09/24 15:05 Blood Culture - Preliminary Blood SPECIMEN COLLECTED A&P Assessment and plan (1) Generalized weakness: (2) COVID-19: (3) Urinary tract infection: (4) Hypertension: Qualifiers: Hypertension type: essential hypertension Qualified Code(s): I10 - Essential (primary) hypertension (5) Hypercholesteremia: (6) Diabetes: Qualifiers: Diabetes mellitus type: type 2 Diabetes mellitus terminal operator insulin use: without mcc use Diabetes mellitus complication status: without complication Qualified Code(s): E11.9 - Type 2 diabetes mellitus without complications (7) OAB (overactive bladder): (8) Depression: Qualifiers: Depression Type: major depressive disorder Major depression recurrence: recurrent Active/Remission status: currently active Major depression episode severity: mild Qualified Code(s): F33.0 - Major depressive disorder, recurrent, mild Plan Loretta Francois is a 84 year old female with past medical history of hypertension, hyperlipidemia, type 2 diabetes mellitus, GERD, depression, overactive bladder, recurrent UTIs presented with complaint of severe weakness, fatigue, lightheadedness, unable to walk since 3 days and was found to have COVID-19 positive and positive UA. COVID-19 infection- WBC count normal CRP 46 Chest x-ray showed no acute findings We will hold off on IV remdesivir and steroids Continue to monitor UTI- UA showed nitrate positive, leukocyte esterase 2+, WBCs more than 100, bacteria 4+ and urine yeast 1+ Received normal saline 1 L bolus and IV cefepime 2 g in ER Follow-up blood cultures and urine culture. Home medication needs to be reconciled. Daughter, Snehal [phone] to bring the list of home medications GI prophylaxis with IV Pepcid 20 mg twice daily DVT prophylaxis with subcutaneous Lovenox CODE STATUS discussed with patient and family, she is full code for now PDMP PDMP Reviewed: Not Reviewed Attestations Medical Necessity Statement*: Need continued hospitalization crossing 2 midnights for management of COVID-19 infection and UTI with IV antibiotics and fluids Time Spent in Patient Care: 40 minutes Coding Level of Care Code Acute Code for [facility] Fwd Diagnoses Generalized weakness R53.1 COVID-19 U07.1 Urinary tract infection N39.0 Essential hypertension I10 Hypertension type: essential hypertension Hypercholesteremia E78.00 Type 2 diabetes mellitus without complication, without long-term current use of insulin E11.9 Diabetes mellitus type: type 2 Diabetes mellitus terminal operator insulin use: without terminal operator use Diabetes mellitus complication status: without complication OAB (overactive bladder) N32.81 Mild episode of recurrent major depressive disorder F33.0 Depression Type: major depressive disorder Major depression recurrence: recurrent Active/Remission status: currently active Major depression episode severity: mild Time Spent (min) 40
[2024-10-09] MEDS: sodium chloride 0.9% 1,000 ML 75 ML IV (19:10)
[2024-10-09] MEDS: enoxaparin 40 mg/0.4 mL Syringe SUBCUT (19:10)
[2024-10-09] MEDS: famotidine 20 mg/2 mL INJ IVP (19:10)
--- NOTE | 2024-10-09 20:44 | ECG_ITS ---
[facility] Test Date: 2024-10-10 Pat Name: Loretta Francois Department: Room: 260 Gender: Female Promotions Executive Producer: : 1940 Requested By: Earline Bloom Order Number: [id number] Susie MD: Kendall Reveles M.D. Measurements Intervals [place] Rate: 71 P: 49 CT: 180 QRS: -53 QRSD: 92 T: 84 QT: 357 QTc: 390 Interpretive Statements SINUS RHYTHM WITH MARKED SINUS ARRHYTHMIA LEFT ANTERIOR FASCICULAR BLOCK [QRS AXIS <= -45, QR IN I, RS IN II] NONSPECIFIC ST & T-WAVE ABNORMALITY Compared to ECG 10/09/2024 16:29:44 Left anterior fascicular block now present T-wave abnormality now present Left-axis deviation no longer present Electronically Signed On 10-11-2024 09:06:25 CDT by Kendall Reveles M.D. [id number] [id number]
[2024-10-09] MEDS: fluconazole premix 100 MG in empty flexible container 1 EACH 50 MG IV (21:07)
[2024-10-09 21:09] LABS: Troponin 5 6HR 11.25 ng/L (0-10); Troponin 5 6HR Delta 0.25 ng/L (0-12)
--- NOTE | 2024-10-09 21:25 | PC.NURSE ---
patient has a red area on her left butt cheek. she states it is always there. it is not painful and it blanches. it does not appear to be a pressure sore.
[2024-10-10] MEDS: sodium chloride 0.9% 1,000 ML 75 ML IV ×3 (02:42→21:43)
[2024-10-10 04:00] VITALS: BP 151/67; PULSE 71; RESP 18; TEMP 37; O2SAT 92
[2024-10-10] MEDS: acetaminophen 325 mg Tablet 650 MG PO (05:03)
[2024-10-10 06:12] LABS: Glucose Point of Care 124 mg/dL (70-110)
[2024-10-10 06:12] LABS: Basophils % 0.8 %; Eosinophils % 0.2 %; Hematocrit 40.1 % (36-47); Lymphocytes # 0.7 10^3/uL (0.8-4.8); Lymphocytes % 13.2 %; Mean Corpuscular HGB Conc 30.9 g/dL (30-55); Mean Corpuscular Hemoglobin 26.1 pg (27-33); Mean Corpuscular Volume 84.2 fl (85-98); Mean Platelet Volume 10.9 fL (7.4-10.4); Monocytes # 0.7 10^3/uL (0.2-0.9); Monocytes % 12.2 %; Neutrophils # 3.89 10^3/uL (1.8-7.7); Nucleated Red Blood Cells % 0 %; Platelet Count 134 10^3/cmm (157-399); Red Blood Count 4.76 10^6/uL (3.85-5.65); Red Cell Distribution Width 15.2 % (12.1-15.1); White Blood Count 5.32 10^3/uL (3.29-11.43)
[2024-10-10] MEDS: famotidine 20 mg/2 mL INJ IVP ×2 (06:16→17:31)
[2024-10-10 06:32] LABS: Alanine Aminotransferase 10 U/L (0-33); Albumin Level 3.9 g/dL (3.5-5.2); Alkaline Phosphatase 86 U/L (35-105); Aspartate Amino Transferase 13 U/L (0-32); Blood Urea Nitrogen 18 mg/dL (8-23); Calcium 9.2 mg/dL (8.5-10.5); Carbon Dioxide 20 mmol/L (22-29); Chloride 106 mmol/L (98-107); Creatinine Clr Calc Pharmacy 52.1155; Globulin 2.5 g/dL (1.3-4.6); Glucose 125 mg/dL (65-115); Osmolality Calculated 289 mOsm/kg (285-295); Sodium 138 mmol/L (136-145); Total Bilirubin 1.1 mg/dL (0.15-1.2); Total Protein 6.4 g/dL (6.6-8.7)
[2024-10-10 08:08] VITALS: BP 136/72; PULSE 71; RESP 18; TEMP 36.7; O2SAT 93
[2024-10-10] MEDS: cefTRIAXone 1,000 mg SDV 1000 MG IVP (08:34)
--- NOTE | 2024-10-10 11:49 | P.PN_ITS ---
Subjective 2 Subjective: Seen her at bedside this morning. Denies any complaint of shortness of breath or chest pain. Reports feeling better as compared to arrival in the hospital. Medications: Reviewed: Yes Vitals/I&O/Wt Last Vital Signs Temp 98.1 F 10/10/24 08:08 Pulse 71 10/10/24 08:08 Resp 18 10/10/24 08:08 BP 136/72 10/10/24 08:08 Pulse Ox 93 10/10/24 08:08 O2 Del Method Room Air 10/10/24 08:08 10/09/24 10/10/24 10/10/24 22:59 06:59 14:59 Intake Total 1050 / 1050 565 / 1615 801.25 / 801.25 Output Total Balance 1050 / 1050 565 / 1615 800.25 / 800.25 Weight last 48 hrs Weight 71.577 kg Weight 74.616 kg Weight 72.575 kg Physical Exam 2 Narrative: She is alert awake oriented x 3, anxious Chest clear to auscultation bilaterally Cardiovascular normal heart sounds no murmurs Abdomen soft nontender nondistended normal bowel sounds Extremities no edema noted bilateral lower extremity Data 10/10/24 05:12 10/10/24 05:12 Micro: Microbiology 10/09/24 15:02 Urine Culture - Preliminary Urine,Clean Catch Gram Negative Rods 10/09/24 15:09 Blood Culture - Preliminary Blood SPECIMEN COLLECTED 10/09/24 15:05 Blood Culture - Preliminary Blood SPECIMEN COLLECTED A&P Assessment and plan (1) Generalized weakness: (2) COVID-19: (3) Urinary tract infection: (4) Hypertension: Qualifiers: Hypertension type: essential hypertension Qualified Code(s): I10 - Essential (primary) hypertension (5) Hypercholesteremia: (6) Diabetes: Qualifiers: Diabetes mellitus type: type 2 Diabetes mellitus buttermaker helper insulin use: without fdc use Diabetes mellitus complication status: without complication Qualified Code(s): E11.9 - Type 2 diabetes mellitus without complications (7) OAB (overactive bladder): (8) Depression: Qualifiers: Depression Type: major depressive disorder Major depression recurrence: recurrent Active/Remission status: currently active Major depression episode severity: mild Qualified Code(s): F33.0 - Major depressive disorder, recurrent, mild Plan Loretta Francois is a 84 year old female with past medical history of hypertension, hyperlipidemia, type 2 diabetes mellitus, GERD, depression, overactive bladder, recurrent UTIs presented with complaint of severe weakness, fatigue, lightheadedness, unable to walk since 3 days and was found to have COVID-19 positive and positive UA. COVID-19 infection- WBC count normal CRP 46 Chest x-ray showed no acute findings We will hold off on IV remdesivir and steroids Continue to monitor UTI- UA showed nitrate positive, leukocyte esterase 2+, WBCs more than 100, bacteria 4+ and urine yeast 1+ Received normal saline 1 L bolus and IV cefepime 2 g in ER Follow-up blood cultures and urine culture. Home medication needs to be reconciled. DaughterSnehal [phone] to bring the list of home medications GI prophylaxis with IV Pepcid 20 mg twice daily DVT prophylaxis with subcutaneous Lovenox CODE STATUS discussed with patient and family, she is full code for now 10/10/24 Labs reviewed and acceptable. Will continue current management Anticipating discharge in a.m. PDMP PDMP Reviewed: Not Reviewed Attestations 2 Medical Necessity Statement*: Need continued hospitalization crossing 2 midnights for management of COVID-19 infection and UTI with IV antibiotics and fluids Time Spent in Patient Care: 15 minutes Coding Level of Care Code Acute Code for [facility] Fwd Diagnoses Generalized weakness R53.1 COVID-19 U07.1 Urinary tract infection N39.0 Essential hypertension I10 Hypertension type: essential hypertension Hypercholesteremia E78.00 Type 2 diabetes mellitus without complication, without long-term current use of insulin E11.9 Diabetes mellitus type: type 2 Diabetes mellitus buttermaker helper insulin use: without buttermaker helper use Diabetes mellitus complication status: without complication OAB (overactive bladder) N32.81 Mild episode of recurrent major depressive disorder F33.0 Depression Type: major depressive disorder Major depression recurrence: recurrent Active/Remission status: currently active Major depression episode severity: mild Time Spent (min) 15
[2024-10-10 12:00] VITALS: BP 157/53; PULSE 71; RESP 16; TEMP 36.8; O2SAT 95
[2024-10-10] MEDS: amlodipine 5 mg Tablet 2.5 MG PO (12:57)
[2024-10-10] MEDS: aspirin 81 mg EC Tablet PO (12:57)
[2024-10-10] MEDS: sertraline 50 mg Tablet PO (12:57)
[2024-10-10] MEDS: insulin glargine 100 units/1 mL 20 UNIT SUBCUT (12:57)
[2024-10-10] MEDS: oxybutynin 5 mg Tablet PO ×2 (12:57→17:31)
[2024-10-10] MEDS: potassium chloride ER 10 mEq Tablet PO (12:57)
[2024-10-10 15:55] VITALS: BP 138/71; PULSE 73; RESP 18; TEMP 37.1; O2SAT 91
[2024-10-10] MEDS: enoxaparin 40 mg/0.4 mL Syringe SUBCUT (17:31)
[2024-10-10 19:18] VITALS: BP 157/69; PULSE 69; RESP 16; TEMP 37.2; O2SAT 96
[2024-10-10] MEDS: fluconazole premix 100 MG in empty flexible container 1 EACH 50 MG IV (21:42)
[2024-10-11] VITALS (7 sets, daily range): BP systolic 126–152; BP diastolic 66–80; PULSE 60–79; RESP 16–18; TEMP 36.6–36.9; O2SAT 93–96
[2024-10-11 05:55] LABS: Basophils % 0.8 %; Eosinophils % 0.2 %; Hematocrit 37.4 % (36-47); Lymphocytes # 0.9 10^3/uL (0.8-4.8); Lymphocytes % 16.9 %; Mean Corpuscular HGB Conc 31.6 g/dL (30-55); Mean Corpuscular Hemoglobin 26.2 pg (27-33); Mean Corpuscular Volume 82.9 fl (85-98); Mean Platelet Volume 10.6 fL (7.4-10.4); Monocytes # 0.6 10^3/uL (0.2-0.9); Monocytes % 11.1 %; Neutrophils # 3.63 10^3/uL (1.8-7.7); Neutrophils % 70.4 %; Nucleated Red Blood Cells % 0 %; Platelet Count 121 10^3/cmm (157-399); Red Blood Count 4.51 10^6/uL (3.85-5.65); Red Cell Distribution Width 15.2 % (12.1-15.1); White Blood Count 5.15 10^3/uL (3.29-11.43)
[2024-10-11] MEDS: insulin glargine 100 units/1 mL 20 UNIT SUBCUT (06:15)
[2024-10-11] MEDS: famotidine 20 mg/2 mL INJ IVP (06:15)
[2024-10-11 06:22] LABS: Alanine Aminotransferase 9 U/L (0-33); Albumin Level 3.7 g/dL (3.5-5.2); Alkaline Phosphatase 82 U/L (35-105); Anion Gap 14.6 (5-19); Aspartate Amino Transferase 13 U/L (0-32); Blood Urea Nitrogen 17 mg/dL (8-23); Calcium 9.2 mg/dL (8.5-10.5); Carbon Dioxide 21 mmol/L (22-29); Chloride 107 mmol/L (98-107); Creatinine Clr Calc Pharmacy 52.1155; Globulin 2.5 g/dL (1.3-4.6); Glucose 126 mg/dL (65-115); Osmolality Calculated 291 mOsm/kg (285-295); Potassium 3.6 mmol/L (3.5-5.1); Sodium 139 mmol/L (136-145); Total Protein 6.2 g/dL (6.6-8.7)
[2024-10-11] MEDS: aspirin 81 mg EC Tablet PO (09:43)
[2024-10-11] MEDS: oxybutynin 5 mg Tablet PO (09:43)
[2024-10-11] MEDS: sertraline 50 mg Tablet PO (09:43)
[2024-10-11] MEDS: potassium chloride ER 10 mEq Tablet PO (09:43)
[2024-10-11] MEDS: amlodipine 5 mg Tablet 2.5 MG PO (09:44)
[2024-10-11] MEDS: cefTRIAXone 1,000 mg SDV 1000 MG IVP (09:44)
--- NOTE | 2024-10-11 10:04 | PC.SOCIAL ---
IMM Update pg 2 of IMM Updated and reviewed w/ patient. Copy provided and copy dated, initialed and placed in chart.
--- NOTE | 2024-10-11 13:32 | P.PN_ITS ---
Subjective 2 Subjective: Seen her at bedside this morning. Denies any acute complaints at this time. She has been sitting in chair with no acute distress. Has been walking back and forth to the bathroom without any assistance. Medications: Reviewed: Yes Vitals/I&O/Wt Last Vital Signs Temp 98.3 F 10/11/24 13:21 Pulse 72 10/11/24 13:21 Resp 18 10/11/24 13:21 BP 127/69 10/11/24 13:21 Pulse Ox 96 10/11/24 13:21 O2 Del Method Room Air 10/11/24 13:21 10/10/24 10/11/24 10/11/24 22:59 06:59 14:59 Intake Total 1545 / 2526.25 100 / 2626.25 480 / 480 Balance 1545 / 2525.25 100 / 2625.25 480 / 480 Weight last 48 hrs Weight 71.577 kg Weight 74.616 kg Weight 72.575 kg Physical Exam 2 Narrative: She is alert awake oriented x 3, anxious Chest clear to auscultation bilaterally Cardiovascular normal heart sounds no murmurs Abdomen soft nontender nondistended normal bowel sounds Extremities no edema noted bilateral lower extremity Data 10/11/24 05:29 10/11/24 05:29 Micro: Microbiology 10/09/24 15:02 Urine Culture - Final Urine,Clean Catch Klebsiella pneumoniae 10/09/24 15:09 Blood Culture - Preliminary Blood NEGATIVE TO DATE 10/09/24 15:05 Blood Culture - Preliminary Blood NEGATIVE TO DATE A&P Assessment and plan (1) Generalized weakness: (2) COVID-19: (3) Urinary tract infection: (4) Hypertension: Qualifiers: Hypertension type: essential hypertension Qualified Code(s): I10 - Essential (primary) hypertension (5) Hypercholesteremia: (6) Diabetes: Qualifiers: Diabetes mellitus type: type 2 Diabetes mellitus assisted insulin use: without buttermilk drier operator use Diabetes mellitus complication status: without complication Qualified Code(s): E11.9 - Type 2 diabetes mellitus without complications (7) OAB (overactive bladder): (8) Depression: Qualifiers: Depression Type: major depressive disorder Major depression recurrence: recurrent Active/Remission status: currently active Major depression episode severity: mild Qualified Code(s): F33.0 - Major depressive disorder, recurrent, mild Plan Loretta Francois is a 84 year old female with past medical history of hypertension, hyperlipidemia, type 2 diabetes mellitus, GERD, depression, overactive bladder, recurrent UTIs presented with complaint of severe weakness, fatigue, lightheadedness, unable to walk since 3 days and was found to have COVID-19 positive and positive UA. COVID-19 infection- WBC count normal CRP 46 Chest x-ray showed no acute findings We will hold off on IV remdesivir and steroids Continue to monitor UTI- UA showed nitrate positive, leukocyte esterase 2+, WBCs more than 100, bacteria 4+ and urine yeast 1+ Received normal saline 1 L bolus and IV cefepime 2 g in ER Follow-up blood cultures and urine culture. Home medication needs to be reconciled. Daughter, Snehal [phone] to bring the list of home medications GI prophylaxis with IV Pepcid 20 mg twice daily DVT prophylaxis with subcutaneous Lovenox CODE STATUS discussed with patient and family, she is full code for now 10/10/24 Labs reviewed and acceptable. Will continue current management Anticipating discharge in a.m. 10/11/24 Urine culture growing gram-negative rods. Will continue IV ceftriaxone. Patient has been ambulating well without assistance. She is doing well, tolerating p.o. intake and ambulating. will discharge in a.m. PDMP PDMP Reviewed: Not Reviewed Attestations 2 Medical Necessity Statement*: Need continued hospitalization crossing 2 midnights for management of COVID-19 infection and UTI with IV antibiotics and fluids Time Spent in Patient Care: 15 minutes Coding Level of Care Code Acute Code for [facility] Fwd Diagnoses Generalized weakness R53.1 COVID-19 U07.1 Urinary tract infection N39.0 Essential hypertension I10 Hypertension type: essential hypertension Hypercholesteremia E78.00 Type 2 diabetes mellitus without complication, without long-term current use of insulin E11.9 Diabetes mellitus type: type 2 Diabetes mellitus assisted insulin use: without assisted use Diabetes mellitus complication status: without complication OAB (overactive bladder) N32.81 Mild episode of recurrent major depressive disorder F33.0 Depression Type: major depressive disorder Major depression recurrence: recurrent Active/Remission status: currently active Major depression episode severity: mild Time Spent (min) 15
[2024-10-11] MEDS: sodium chloride 0.9% 1,000 ML 75 ML IV (14:28)
--- NOTE | 2024-10-11 15:51 | CTR_ITS ---
PROCEDURE INFORMATION: Exam: CT Orbits Without Contrast Exam date and time: 10/11/2024 4:37 PM Age: 84 years old Clinical indication: Visual changes or disturbances; Discomfort; Additional info: Left severe conjunctival hemorrhage, covid patient TECHNIQUE: Imaging protocol: Computed tomography of the orbits without contrast. Radiation optimization: All CT scans at this facility use at least one of these dose optimization techniques: automated exposure control; mA and/or kV adjustment per patient size (includes targeted exams where dose is matched to clinical indication); or iterative reconstruction. COMPARISON: CT head wo con* [id number] 10/09/2024 3:42 PM RADIATION DOSE METRICS: Total DLP (mGy-cm): 348.1 FINDINGS: Paranasal sinuses: Bilateral maxillary and ethmoid sinus mucosal thickening with minimal sphenoid sinus mucosal thickening indicating chronic pansinusitis. Mastoid air cells: Mastoid air cells are aerated with no effusions. Orbital cavities: Globes are intact with associated stranding indicating inflammatory process indicating conjunctivitis/scleritis Bones/joints: No acute osseous abnormality. Soft tissues: No significant facial soft tissue swelling. CT/CT orbit BI wo con* [id number] IMPRESSION: 1. Conjunctivitis/scleritis. 2. Chronic pansinusitis.
[2024-10-11] MEDS: HYDROcodone-acetaminophen 5-325 mg Tablet 1 TAB PO (18:04)
[2024-10-11] MEDS: famotidine 20 mg Tablet PO (18:11)
--- NOTE | 2024-10-11 18:11 | PC.NURSE ---
pt c/o left eye pain, rn observed pts left eye, sclera very red. notified dr. yao, she came to pts beside to examine, ordered orbital ct and eye patch.
--- NOTE | 2024-10-11 21:29 | PC.NURSE ---
supervisor acoustical tile carpenters notified of need for eye patch due to patient having an order for it. She stated ER is out of them, but did bring eye pads for patient.
[2024-10-11] MEDS: ciprofloxacin 0.3% Op Soln 2.5 mL Btl 1 DROP EYE-LEFT (21:34)
[2024-10-11] MEDS: guaiFENesin 100 mg/5 mL UDC 10 mL 200 MG PO (21:37)
[2024-10-11] MEDS: ibuprofen 200 mg Tablet 400 MG PO (21:37)
[2024-10-12] MEDS: sodium chloride 0.9% 1,000 ML 75 ML IV ×2 (03:27→17:28)
[2024-10-12 03:53] VITALS: BP 146/71; PULSE 65; RESP 16; TEMP 36.4; O2SAT 94
[2024-10-12 05:30] LABS: Basophils % 0.9 %; Eosinophils # 0.1 10^3/uL (0.0-0.8); Eosinophils % 3.8 %; Hematocrit 32.5 % (36-47); Lymphocytes # 0.6 10^3/uL (0.8-4.8); Lymphocytes % 18.3 %; Mean Corpuscular HGB Conc 30.8 g/dL (30-55); Mean Corpuscular Hemoglobin 26.1 pg (27-33); Mean Corpuscular Volume 84.9 fl (85-98); Mean Platelet Volume 10.4 fL (7.4-10.4); Monocytes # 0.5 10^3/uL (0.2-0.9); Monocytes % 14.7 %; Neutrophils # 2.08 10^3/uL (1.8-7.7); Neutrophils % 61.4 %; Nucleated Red Blood Cells % 0 %; Platelet Count 105 10^3/cmm (157-399); Red Blood Count 3.83 10^6/uL (3.85-5.65); Red Cell Distribution Width 15.6 % (12.1-15.1); White Blood Count 3.39 10^3/uL (3.29-11.43)
[2024-10-12 05:58] LABS: Alanine Aminotransferase 7 U/L (0-33); Albumin Level 2.9 g/dL (3.5-5.2); Alkaline Phosphatase 70 U/L (35-105); Aspartate Amino Transferase 9 U/L (0-32); Blood Urea Nitrogen 18 mg/dL (8-23); Calcium 7.5 mg/dL (8.5-10.5); Carbon Dioxide 17 mmol/L (22-29); Creatinine Clr Calc Pharmacy 52.4541; Globulin 1.9 g/dL (1.3-4.6); Glucose 125 mg/dL (65-115); Total Bilirubin 0.5 mg/dL (0.15-1.2); Total Protein 4.8 g/dL (6.6-8.7)
[2024-10-12 06:08] LABS: Anion Gap 11.4 (5-19); Chloride 115 mmol/L (98-107); Osmolality Calculated 293 mOsm/kg (285-295); Potassium 3.4 mmol/L (3.5-5.1); Sodium 140 mmol/L (136-145)
[2024-10-12 06:32] LABS: Glucose Point of Care 147 mg/dL (70-110)
[2024-10-12 08:00] VITALS: BP 146/95; PULSE 65; RESP 17; TEMP 36.4; O2SAT 94
[2024-10-12] MEDS: ibuprofen 200 mg Tablet 400 MG PO ×2 (09:26→19:45)
[2024-10-12] MEDS: sertraline 50 mg Tablet PO (09:26)
[2024-10-12] MEDS: oxybutynin 5 mg Tablet PO ×2 (09:26→17:26)
[2024-10-12] MEDS: aspirin 81 mg EC Tablet PO (09:26)
[2024-10-12] MEDS: potassium chloride ER 20 mEq Tablet 40 MEQ PO (09:27)
[2024-10-12] MEDS: dexamethasone 4 mg Tablet PO ×2 (09:27→17:26)
[2024-10-12] MEDS: potassium chloride ER 10 mEq Tablet PO (09:27)
[2024-10-12] MEDS: amlodipine 5 mg Tablet 2.5 MG PO (09:28)
[2024-10-12] MEDS: cefTRIAXone 1,000 mg SDV 1000 MG IVP (09:28)
[2024-10-12] MEDS: famotidine 20 mg Tablet PO ×2 (09:32→17:26)
[2024-10-12] MEDS: insulin glargine 100 units/1 mL 20 UNIT SUBCUT (09:32)
[2024-10-12] MEDS: ciprofloxacin 0.3% Op Soln 2.5 mL Btl 1 DROP EYE-LEFT (09:33)
[2024-10-12 11:53] VITALS: BP 153/75; PULSE 65; RESP 15; TEMP 36.4; O2SAT 94
--- NOTE | 2024-10-12 13:15 | P.PN_ITS ---
Subjective 2 Subjective: No acute overnight events noted. Patient denies any complaint of chest pain or shortness of breath. She had an episode of severe conjunctival hemorrhage yesterday afternoon. Likely secondary to heart cough. Vision tested was normal but she did report mild discomfort/pain. No diplopia or abnormality of vision noted. Medications: Reviewed: Yes Vitals/I&O/Wt Last Vital Signs Temp 97.6 F 10/12/24 11:53 Pulse 65 10/12/24 11:53 Resp 15 10/12/24 11:53 BP 153/75 10/12/24 11:53 Pulse Ox 94 10/12/24 11:53 O2 Del Method Room Air 10/12/24 11:53 10/11/24 10/12/24 10/12/24 22:59 06:59 14:59 Intake Total 240 / 1720 1453.75 / 3173.75 360 / 360 Balance 240 / 1720 1453.75 / 3173.75 360 / 360 Weight last 48 hrs Weight 72.62 kg Physical Exam 2 Narrative: She is alert awake oriented x 3, anxious HEENT- left eye severe conjunctival hemorrhage present, vision normal, left periorbital ecchymosis present. Also has right mild conjunctival erythema present Chest clear to auscultation bilaterally Cardiovascular normal heart sounds no murmurs Abdomen soft nontender nondistended normal bowel sounds Extremities no edema noted bilateral lower extremity Data 10/12/24 05:20 10/12/24 05:20 Micro: Microbiology 10/09/24 15:02 Urine Culture - Final Urine,Clean Catch Klebsiella pneumoniae A&P Assessment and plan (1) Generalized weakness: (2) COVID-19: (3) Urinary tract infection: (4) Hypertension: Qualifiers: Hypertension type: essential hypertension Qualified Code(s): I10 - Essential (primary) hypertension (5) Hypercholesteremia: (6) Diabetes: Qualifiers: Diabetes mellitus type: type 2 Diabetes mellitus director long term care insulin use: without longterm use Diabetes mellitus complication status: without complication Qualified Code(s): E11.9 - Type 2 diabetes mellitus without complications (7) OAB (overactive bladder): (8) Depression: Qualifiers: Depression Type: major depressive disorder Major depression recurrence: recurrent Active/Remission status: currently active Major depression episode severity: mild Qualified Code(s): F33.0 - Major depressive disorder, recurrent, mild Plan Loretta Francois is a 84 year old female with past medical history of hypertension, hyperlipidemia, type 2 diabetes mellitus, GERD, depression, overactive bladder, recurrent UTIs presented with complaint of severe weakness, fatigue, lightheadedness, unable to walk since 3 days and was found to have COVID-19 positive and positive UA. COVID-19 infection- WBC count normal CRP 46 Chest x-ray showed no acute findings We will hold off on IV remdesivir and steroids Continue to monitor UTI- UA showed nitrate positive, leukocyte esterase 2+, WBCs more than 100, bacteria 4+ and urine yeast 1+ Received normal saline 1 L bolus and IV cefepime 2 g in ER Follow-up blood cultures and urine culture. Home medication needs to be reconciled. DaughterSnehal [phone] to bring the list of home medications GI prophylaxis with IV Pepcid 20 mg twice daily DVT prophylaxis with subcutaneous Lovenox CODE STATUS discussed with patient and family, she is full code for now 10/10/24 Labs reviewed and acceptable. Will continue current management Anticipating discharge in a.m. 10/11/24 Urine culture growing gram-negative rods. Will continue IV ceftriaxone. Patient has been ambulating well without assistance. She is doing well, tolerating p.o. intake and ambulating. will discharge in a.m. 10/12/24 Urine culture growing Klebsiella pneumoniae pansensitive, will continue IV ceftriaxone for now. Can be discharged home on p.o. levofloxacin. Patient has been ambulating well without assistance. She had an episode of left eye conjunctival hemorrhage yesterday, spontaneous likely secondary to deep coughing. CT orbits done showed scleritis, conjunctivitis, chronic sinusitis. Conjunctival hemorrhage likely secondary to scleritis, conjunctivitis in conjunction with COVID-19 infection. Started on p.o. dexamethasone 4 mg twice daily, ciprofloxacin eyedrops both eyes every 6 hours. Will continue to monitor. Her daughter and son-in-law at bedside, explained and counseled about eye infection and hemorrhage. Agrees with plan of care and all questions answered. PDMP PDMP Reviewed: Not Reviewed Attestations 2 Medical Necessity Statement*: Need continued hospitalization crossing 2 midnights for management of COVID-19 infection, UTI and conjunctival hemorrhage with IV antibiotics and fluids Time Spent in Patient Care: 20 minutes Coding Level of Care Code Acute Code for [facility] Fwd Diagnoses Generalized weakness R53.1 COVID-19 U07.1 Urinary tract infection N39.0 Essential hypertension I10 Hypertension type: essential hypertension Hypercholesteremia E78.00 Type 2 diabetes mellitus without complication, without long-term current use of insulin E11.9 Diabetes mellitus type: type 2 Diabetes mellitus director long term care insulin use: without longterm use Diabetes mellitus complication status: without complication OAB (overactive bladder) N32.81 Mild episode of recurrent major depressive disorder F33.0 Depression Type: major depressive disorder Major depression recurrence: recurrent Active/Remission status: currently active Major depression episode severity: mild Time Spent (min) 20
[2024-10-12 16:00] VITALS: BP 159/68; PULSE 65; RESP 14; TEMP 36.4; O2SAT 94
[2024-10-12] MEDS: ciprofloxacin 0.3% Op Soln 2.5 mL Btl 1 DROP EYE-BOTH ×2 (17:29→19:45)
[2024-10-12 19:29] VITALS: BP 166/80; PULSE 66; RESP 17; TEMP 36.7; O2SAT 91
[2024-10-12] MEDS: guaiFENesin 100 mg/5 mL UDC 10 mL 200 MG PO (19:45)
[2024-10-12] MEDS: HYDROcodone-acetaminophen 5-325 mg Tablet 1 TAB PO (20:56)
[2024-10-12 23:29] VITALS: BP 156/78; PULSE 71; RESP 16; TEMP 36.4; O2SAT 94
[2024-10-13 03:55] VITALS: BP 154/68; PULSE 65; RESP 18; TEMP 36.7; O2SAT 94
[2024-10-13 04:56] LABS: Lymphocytes # 0.5 10^3/uL (0.8-4.8); Lymphocytes % 12.2 %; Mean Corpuscular HGB Conc 31.9 g/dL (30-55); Mean Corpuscular Hemoglobin 26.3 pg (27-33); Mean Corpuscular Volume 82.4 fl (85-98); Mean Platelet Volume 10.2 fL (7.4-10.4); Monocytes # 0.2 10^3/uL (0.2-0.9); Neutrophils # 3.12 10^3/uL (1.8-7.7); Neutrophils % 82.7 %; Nucleated Red Blood Cells % 0 %; Platelet Count 150 10^3/cmm (157-399); Red Blood Count 4.49 10^6/uL (3.85-5.65); Red Cell Distribution Width 15.1 % (12.1-15.1); White Blood Count 3.77 10^3/uL (3.29-11.43)
[2024-10-13 05:30] LABS: Anion Gap 17.5 (5-19); Blood Urea Nitrogen 21 mg/dL (8-23); Calcium 9.5 mg/dL (8.5-10.5); Carbon Dioxide 19 mmol/L (22-29); Chloride 105 mmol/L (98-107); Glucose 271 mg/dL (65-115); Osmolality Calculated 297 mOsm/kg (285-295); Potassium 4.5 mmol/L (3.5-5.1); Sodium 137 mmol/L (136-145)
[2024-10-13 08:20] VITALS: BP 152/77; PULSE 71; RESP 20; TEMP 36.7; O2SAT 94
[2024-10-13] MEDS: sodium chloride 0.9% 1,000 ML 75 ML IV (08:33)
[2024-10-13] MEDS: ibuprofen 200 mg Tablet 400 MG PO (09:04)
[2024-10-13] MEDS: oxybutynin 5 mg Tablet PO (09:04)
[2024-10-13] MEDS: amlodipine 5 mg Tablet 2.5 MG PO (09:04)
[2024-10-13] MEDS: famotidine 20 mg Tablet PO (09:05)
[2024-10-13] MEDS: sertraline 50 mg Tablet PO (09:05)
[2024-10-13] MEDS: ciprofloxacin 0.3% Op Soln 2.5 mL Btl 1 DROP EYE-BOTH ×2 (09:06→12:35)
[2024-10-13] MEDS: aspirin 81 mg EC Tablet PO (09:06)
[2024-10-13] MEDS: cefTRIAXone 1,000 mg SDV 1000 MG IVP (09:06)
[2024-10-13] MEDS: potassium chloride ER 10 mEq Tablet PO (09:06)
[2024-10-13] MEDS: dexamethasone 4 mg Tablet PO (09:06)
[2024-10-13] MEDS: insulin glargine 100 units/1 mL 20 UNIT SUBCUT (09:22)
[2024-10-13 09:38] LABS: Glucose Point of Care 314 mg/dL (70-110)
--- NOTE | 2024-10-13 11:04 | P.DS_ITS ---
Discharge Providers Date of Admission: 10/09/24 17:38 Date of Discharge: October 13, 2024 Attending Provider at Admission: Laurie Joseph MD Attending Provider at Discharge: Laurie Joseph MD Primary Care Provider: Yusuf Currie MD Diagnoses at Discharge Discharge Diagnosis (1) Generalized weakness: Status: Acute (2) COVID-19: Status: Acute (3) Urinary tract infection: Status: Acute (4) Hypertension: Status: Acute Qualifiers: Hypertension type: essential hypertension Qualified Code(s): I10 - Essential (primary) hypertension (5) Hypercholesteremia: Status: Acute (6) Diabetes: Status: Acute Qualifiers: Diabetes mellitus type: type 2 Diabetes mellitus care home insulin use: without care home use Diabetes mellitus complication status: without complication Qualified Code(s): E11.9 - Type 2 diabetes mellitus without complications (7) OAB (overactive bladder): Status: Acute (8) Depression: Status: Acute Qualifiers: Depression Type: major depressive disorder Major depression recurrence: recurrent Active/Remission status: currently active Major depression episode severity: mild Qualified Code(s): F33.0 - Major depressive disorder, recurrent, mild (9) Scleritis and episcleritis: Status: Acute Reason for Visit Reason for Visit: Weak, Dizzy,Lethargic Brief History: Loretta Francois is a 84 year old female with past medical history of hypertension, hyperlipidemia, type 2 diabetes mellitus, GERD, depression, overactive bladder, recurrent UTIs presented with complaint of severe weakness, fatigue, lightheadedness, unable to walk since 3 days. Denies any complaint of fever, cough, cold, chest pain, shortness of breath, palpitations, dizziness, nausea/vomiting, diarrhea or urinary complaints. Denies any history of sick contact or recent travel. Hospital Course Hospital Course Loretta Francois is a 84 year old female with past medical history of hypertension, hyperlipidemia, type 2 diabetes mellitus, GERD, depression, overactive bladder, recurrent UTIs presented with complaint of severe weakness, fatigue, lightheadedness, unable to walk since 3 days and was found to have COVID-19 positive and positive UA. COVID-19 infection- WBC count normal CRP 46 Chest x-ray showed no acute findings We will hold off on IV remdesivir and steroids Continue to monitor UTI- UA showed nitrate positive, leukocyte esterase 2+, WBCs more than 100, bacteria 4+ and urine yeast 1+ Received normal saline 1 L bolus and IV cefepime 2 g in ER Follow-up blood cultures and urine culture. Home medication needs to be reconciled. DaughterSnehal [phone] to bring t he list of home medications GI prophylaxis with IV Pepcid 20 mg twice daily DVT prophylaxis with subcutaneous Lovenox CODE STATUS discussed with patient and family, she is full code for now 10/10/24 Labs reviewed and acceptable. Will continue current management Anticipating discharge in a.m. 10/11/24 Urine culture growing gram-negative rods. Will continue IV ceftriaxone. Patient has been ambulating well without assistance. She is doing well, tolerating p.o. intake and ambulating. will discharge in a.m. 10/12/24 Urine culture growing Klebsiella pneumoniae pansensitive, will continue IV ceftriaxone for now. Can be discharged home on p.o. levofloxacin. Patient has been ambulating well without assistance. She had an episode of left eye conjunctival hemorrhage yesterday, spontaneous likely secondary to deep coughing. CT orbits done showed scleritis, conjunctivitis, chronic sinusitis. Conjunctival hemorrhage likely secondary to scleritis, conjunctivitis in conjunction with COVID-19 infection. Started on p.o. dexamethasone 4 mg twice daily, ciprofloxacin eyedrops both eyes every 6 hours. Will continue to m onitor. Her daughter and son-in-law at bedside, explained and counseled about eye infection and hemorrhage. Agrees with plan of care and all questions answered. 10/13/24 She is doing well. Left conjunctival hemorrhage resolving. No vision changes able to ambulate.Will discharge her today with po levofloxacin 750mg daily for 7 days. along with Po decadron and ciprofloxacin eye drops. Physical Exam Narrative: She is alert awake oriented x 3, anxious HEENT- left eye severe conjunctival hemorrhage present resolving slowly, , vision normal, left periorbital ecchymosis present. Also has right mild conjunctival erythema present Chest clear to auscultation bilaterally Cardiovascular normal heart sounds no murmurs Abdomen soft nontender nondistended normal bowel sounds Extremities no edema noted bilateral lower extremity Discharge Data Studies Completed and Pending Completed Studies During Hospitalization Category Date Time Status CT head wo con* [id number] Stat Cat Scan 10/09/24 14:[address] orbit BI wo con* [id number] Stat Cat Scan 10/11/24 15:51 Completed XR chest 1V portable [id number] Stat Exams 10/09/24 14:44 Completed Pending at discharge Category Date Time Status Blood Culture Stat Lab 10/09/24 15:09 Results Radiology Impressions Chest X-Ray 10/09/24 14:44 Impression: 1. Atherosclerosis. 2. Elevated right diaphragm. Head CT 10/09/24 14:44 IMPRESSION: 1. No acute intracranial hemorrhage or edema. 2. Mild cerebral atrophy and small vessel ischemic changes. Orbit CT 10/11/24 15:51 IMPRESSION: 1. Conjunctivitis/scleritis. 2. Chronic pansinusitis. Laboratory Results WBC 3.77 10^3/uL (3.29-11.43) 10/13/24 04:47 RBC 4.49 10^6/uL (3.85-5.65) 10/13/24 04:47 Hgb 11.80 g/dL (11.27-16.99) 10/13/24 04:47 Hct 37.0 % (36-47) 10/13/24 04:47 MCV 82.4 fl (85-98) L 10/13/24 04:47 MCH 26.3 pg (27-33) L 10/13/24 04:47 MCHC 31.9 g/dL (30-55) 10/13/24 04:47 RDW 15.1 % (12.1-15.1) 10/13/24 04:47 Plt Count 150 10^3/cmm (157-399) L D 10/13/24 04:47 MPV 10.2 fL (7.4-10.4) 10/13/24 04:47 Neut % (Auto) 82.7 % 10/13/24 04:47 Lymph % (Auto) 12.2 % 10/13/24 04:47 [place] % (Auto) 4.0 % 10/13/24 04:47 Eos % (Auto) 0.0 % 10/13/24 04:47 Baso % (Auto) 0.0 % 10/13/24 04:47 Neut # (Auto) 3.12 10^3/uL (1.8-7.7) 10/13/24 04:47 Lymph # (Auto) 0.5 10^3/uL (0.8-4.8) L 10/13/24 04:47 [place] # (Auto) 0.2 10^3/uL (0.2-0.9) 10/13/24 04:47 Eos # (Auto) 0.0 10^3/uL (0.0-0.8) 10/13/24 04:47 Baso # (Auto) 0.0 10^3/uL (0.0-0.1) 10/13/24 04:47 Nucleated RBC % (auto) 0 % 10/13/24 04:47 Nucleated RBCs # 0.0 /100WBC 10/13/24 04:47 Sodium 137 mmol/L (136-145) 10/13/24 04:47 Potassium 4.5 mmol/L (3.5-5.1) 10/13/24 04:47 Chloride 105 mmol/L (98-107) 10/13/24 04:47 Carbon Dioxide 19 mmol/L (22-29) L 10/13/24 04:47 Anion Gap 17.5 (5-19) 10/13/24 04:47 BUN 21 mg/dL (8-23) 10/13/24 04:47 Creatinine 0.7 mg/dL (0.5-0.9) 10/13/24 04:47 GFR Calculation Not Reportable 10/13/24 04:47 Glucose 271 mg/dL (65-115) H 10/13/24 04:47 POC Glucose 314 mg/dL (70-110) H 10/13/24 09:21 Calculated Osmolality 297 mOsm/kg (285-295) H 10/13/24 04:47 Lactic Acid 1.3 mmol/L (0.5-2.2) 10/09/24 14:23 Calcium 9.5 mg/dL (8.5-10.5) 10/13/24 04:47 Total Bilirubin 0.5 mg/dL (0.15-1.2) 10/12/24 05:20 AST 9 U/L (0-32) 10/12/24 05:20 ALT 7 U/L (0-33) 10/12/24 05:20 Alkaline Phosphatase 70 U/L (35-105) 10/12/24 05:20 Troponin T Baseline 11 ng/L (0-10) H 10/09/24 14:23 Troponin T 120 Minute 11.55 ng/L (0-10) H 10/09/24 16:12 Delta Troponin T 0.55 ABS# (0-10) 10/09/24 16:12 Troponin T Hi Sens 6Hr 11.25 ng/L (0-10) H 10/09/24 20:32 Troponin T Hi Sens 6Hr Delta 0.25 ng/L (0-12) 10/09/24 20:32 C-Reactive Protein 46.3 mg/L (0.0-4.9) H 10/09/24 14:23 Total Protein 4.8 g/dL (6.6-8.7) L D 10/12/24 05:20 Albumin 2.9 g/dL (3.5-5.2) L 10/12/24 05:20 Globulin 1.9 g/dL (1.3-4.6) 10/12/24 05:20 Procalcitonin 0.21 ng/mL (0-0.5) 10/09/24 14:23 Urine Color Yellow (Yellow) 10/09/24 15:02 Urine Appearance Error (CLEAR) A 10/09/24 15:02 Urine pH 5.0 (5-7) 10/09/24 15:02 Ur Specific [place] 1.023 (1.005-1.030) 10/09/24 15:02 Urine Protein 1+ (Negative) A 10/09/24 15:02 Urine Glucose (UA) 3+ (Normal) H 10/09/24 15:02 Urine Ketones Negative (Negative) 10/09/24 15:02 Urine Blood 1+ (Negative) A 10/09/24 15:02 Urine Nitrate Positive (Negative) A 10/09/24 15:02 Urine Bilirubin Negative (Negative) 10/09/24 15:02 Urine Urobilinogen 0.2 mg/dL (Negative) 10/09/24 15:02 Ur Leukocyte Esterase 2+ (Negative) A 10/09/24 15:02 Urine RBC 6-10 /hpf (0-2) 10/09/24 15:02 Urine WBC >100 /hpf (0-5) H 10/09/24 15:02 Ur Squamous Epith Cells 0-5 /hpf (0-5) 10/09/24 15:02 Amorphous Sediment Not Reportable 10/09/24 15:02 Urine Bacteria 4+ /hpf (NONE) H 10/09/24 15:02 Hyaline Casts 2.87 /lpf 10/09/24 15:02 Urine Yeast 1+ /hpf H 10/09/24 15:02 Influenza A (PCR) Negative (Negative) 10/09/24 15:00 Influenza Type B (PCR) Negative (Negative) 10/09/24 15:00 RSV (PCR) Negative (Negative) 10/09/24 15:00 SARS-CoV-2 (PCR) Positive (Negative) A 10/09/24 15:00 Vitals Last Vital Signs Temp 98.1 F 10/13/24 08:20 Pulse 71 10/13/24 08:20 Resp 20 H 10/13/24 08:20 BP 152/77 10/13/24 08:20 Pulse Ox 94 10/13/24 08:20 O2 Del Method Room Air 10/13/24 08:20 Discharge Plan Discharge Patient Disposition: Home Condition: Stable Prescriptions: New guaifenesin 100 mg/5 mL Liquid 200 mg PO Q4H PRN (Reason: Cough And Congestion) 7 Days Qty: 60 0RF ciprofloxacin HCl 0.3 % Drops 1 drp eye-both QID 10 Days Qty: 10 0RF dexamethasone 4 mg Tablet 4 mg PO BID 8 Days Qty: 16 0RF ibuprofen 200 mg Tablet 400 mg PO Q12H 4 Days Qty: 16 0RF levofloxacin 750 mg tablet 750 mg PO DAILY 7 Days Qty: 7 0RF Continued aspirin 81 mg tablet,delayed release (DR/EC) 81 mg PO DAILY oxybutynin chloride 5 mg tablet 5 mg PO BID Qty: 180 3RF Rx Instructions: TAKE ONE TABLET BY MOUTH TWO TIMES A DAY acetaminophen 325 mg capsule 325 mg PO Q4H PRN (Reason: fever or postoperative pain) Qty: 60 0RF potassium chloride 10 mEq capsule, extended release 10 meq PO DAILY Rx Instructions: take 1 capsule BY MOUTH EVERY DAY amlodipine 2.5 mg tablet 2.5 mg PO DAILY Rx Instructions: TAKE 1 TABLET BY MOUTH EVERY DAY sertraline 50 mg tablet 50 mg PO DAILY Rx Instructions: TAKE 1 TABLET BY MOUTH EVERY DAY insulin glargine [Lantus Solostar U-100 Insulin] 100 unit/mL (3 mL) insulin pen 20 unit SUBCUT QAM Held Jardiance 10 mg tablet 5 mg PO DAILY Qty: 30 5RF Hold Instructions: Resume on 10/28/24. hold till primary care visit glipizide 5 mg tablet 5 mg PO DAILY Qty: 60 1RF Hold Instructions: Resume on 10/28/24. hold till primary care visit metformin 500 mg tablet 500 mg PO DAILY Hold Instructions: Resume on 10/28/24. hold till primary care visit Discharge Orders: Discharge Order (Routine); Ordered 10/13/24 Ordered By: Laurie Joseph Referrals: Yusuf Currie MD [Primary Care Provider] - Discharge Diet: Cardiac Discharge Activity: Increase activity as tolerated Patient Instructions: Opioid Safety Discharge Attestations Time Spent in Discharge Care*: less than 30 min Quality Metrics Clinical Quality Measures [ No reported AMI, CVA or VTE this stay] Coding Level of Care Code Acute Code for Chg Fwd Diagnoses Generalized weakness R53.1 COVID-19 U07.1 Urinary tract infection N39.0 Essential hypertension I10 Hypertension type: essential hypertension Hypercholesteremia E78.00 Type 2 diabetes mellitus without complication, without long-term current use of insulin E11.9 Diabetes mellitus type: type 2 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
[2024-10-13 11:18] VITALS: BP 163/84; PULSE 60; RESP 18; TEMP 36.7; O2SAT 95
[2024-10-13 13:25] VITALS: BP 163/84; PULSE 60; RESP 18; TEMP 36.7; O2SAT 95
== END 2024-10-13 13:27 | disposition skilled nursing facility (03) | DRG 178 ==
LOC: ER 16:54 → MEDSURG 17:38
PROVIDERS: Admitting Provider Internal Medicine; Emergency Provider Emergency Medicine; PCP Family Medicine; Visit Provider Internal Medicine
DX: U07.1 COVID-19 (principal); F33.0 Major depressive disorder, recurrent, mild; N39.0 Urinary tract infection, site not specified; N32.81 Overactive bladder; K21.9 Gastro-esophageal reflux disease without esophagitis; I10 Essential (primary) hypertension; E11.9 Type 2 diabetes mellitus without complications; E86.0 Dehydration; Z79.82 Long term (current) use of aspirin; Z79.4 Long term (current) use of insulin; Z79.84 Long term (current) use of oral hypoglycemic drugs; Z79.899 Other long term (current) drug therapy; Z88.8 Allergy status to other drugs, medicaments and biological substances; Z88.2 Allergy status to sulfonamides; Z88.1 Allergy status to other antibiotic agents; Z79.85 Long-term (current) use of injectable non-insulin antidiabetic drugs; E78.00 Pure hypercholesterolemia, unspecified; H15.009 Unspecified scleritis, unspecified eye; H15.109 Unspecified episcleritis, unspecified eye
CPT/HCPCS: 36415; 36416; 70450; 70480; 71045; 80048; 80053; 81001; 82962; 83605; 84145; 84484; 85025; 86140; 87040; 87077; 87086; 87186; 87637; 93005; 96372; 96374; 97110; 97116; 97161; 99285; J0692; J0696; J1450; J1650; J1815; J3490; J7030; J8540; J9999

== ENCOUNTER 2024-12-23 12:42 | Emergency (ER) | payer MEDICARE, SELFPAY ==
[2024-12-23 12:44] VITALS: BP 141/106; PULSE 101; RESP 16; TEMP 36.5; O2SAT 93
--- NOTE | 2024-12-23 12:55 | CTR_ITS ---
PROCEDURE INFORMATION: Exam: CT Head Without Contrast Exam date and time: 12/23/2024 1:13 PM Age: 84 years old Clinical indication: Injury or trauma; Fall; Blunt trauma (contusions or hematomas); Without loss of consciousness TECHNIQUE: Imaging protocol: Computed tomography of the head without contrast. Axial, coronal and sagittal reformatted images were created and reviewed. Radiation optimization: All CT scans at this facility use at least one of these dose optimization techniques: automated exposure control; mA and/or kV adjustment per patient size (includes targeted exams where dose is matched to clinical indication); or iterative reconstruction. COMPARISON: CT head wo con* [id number] 10/09/2024 3:42 PM RADIATION DOSE METRICS: Total DLP (mGy-cm): 1133 FINDINGS: Brain: Patchy areas of hypoattenuation in the periventricular and subcortical white matter, consistent with chronic small vessel ischemic disease. No CT evidence of acute intracranial hemorrhage or acute territorial infarction. No significant mass effect or midline shift. Basal cisterns patent. Cerebral ventricles: Prominence of the cortical sulci, cisterns and ventricular system, consistent with cerebral and cerebellar volume loss. Paranasal sinuses: Minimal ethmoid mucosal thickening. No fluid levels. Mastoid air cells: Grossly unremarkable. Bones: Unremarkable. No acute fracture. Soft tissues: Grossly unremarkable. Vasculature: Calcific atherosclerotic disease in the cavernous internal carotid arteries, as well as the vertebro-basilar system. CT/CT head wo con* [id number]: 1[address] No CT evidence of acute intracranial pathology. 2. Additional findings, as above.
--- NOTE | 2024-12-23 12:55 | CTR_ITS ---
PROCEDURE INFORMATION: Exam: CT Cervical Spine Without Contrast Exam date and time: 12/23/2024 1:13 PM Age: 84 years old Clinical indication: Injury or trauma; Fall; Blunt trauma TECHNIQUE: Imaging protocol: Computed tomography of the cervical spine without contrast. Axial, coronal and sagittal reformatted images were created and reviewed. Radiation optimization: All CT scans at this facility use at least one of these dose optimization techniques: automated exposure control; mA and/or kV adjustment per patient size (includes targeted exams where dose is matched to clinical indication); or iterative reconstruction. COMPARISON: CT orbit BI wo con* [id number] 10/11/2024 4:37 PM RADIATION DOSE METRICS: Total DLP (mGy-cm): 199.1 FINDINGS: Bones: Osteopenia. Straightening of the normal cervical lordosis. No CT evidence of acute fracture, dislocation or subluxation. Minimal anterolisthesis of C3 on C4 and retrolisthesis of C5 on C6. Alignment otherwise anatomic. Vertebral body heights maintained. Mild multilevel spondylosis without significant spinal canal or neural foraminal stenosis. Thyroid gland: Enlarged and heterogeneous, likely secondary to goiter. Lungs: Lung apices are normal. Soft tissues: Grossly unremarkable. CT/CT cervical spin wo con* [id number] IMPRESSION: 1. No CT evidence of acute cervical spine traumatic injury. 2. Additional findings, as above.
--- NOTE | 2024-12-23 12:55 | W.ED.HEATRA ---
HPI - Head Injury General: Chief complaint: Fall Stated complaint: fall - hit head Time Seen by Provider: 12/23/24 12:44 Source: patient and EMS Mode of arrival: EMS Limitations: no limitations History of Present Illness: Patient is an 84-year-old female presents to ED today via EMS for evaluation of a head injury. Patient states she was outside walking on a walking trail. She states she had finished and was going inside of her garage when she leaned over to warp picker the garage furnace door tender, she toppled over and struck her frontal region. No LOC. Patient states she was not able to get up on her own and a bystander called EMS. Patient states she fell approximately 2 to 3 weeks ago and was not able to get up on her own then either. She states she has bad knees. At baseline, patient usually utilizes a walker. Upon arrival here, she does not have any reported discomforts. She does report feeling a little weak but states this has been present since her last fall. She does have a small abrasion to her anterior left knee but has full range of motion here. Mild frontal hematoma. Complaint: head injury Onset (ago): minute(s) Mechanism of Injury: fall Place: home Loss of Consciousness: no Location of injury: frontal Severity: mild Radiation: none Other Injuries: other (abrasion left knee) Associated symptoms: Reports weakness; Deny nausea, neck pain, syncope or vomiting Related Data Home Medications ?Medication ?Instructions ?Recorded ?Confirmed aspirin 81 mg tablet,delayed 81 mg PO QAM 02/02/21 12/23/24 release metformin 500 mg tablet 500 mg PO DAILY 10/09/24 12/23/24 potassium chloride 10 mEq 10 meq PO DAILY 10/09/24 12/23/24 capsule,extended release sertraline 50 mg tablet 50 mg PO DAILY 10/09/24 12/23/24 Previous Rx's ?Medication ?Instructions ?Recorded acetaminophen 325 mg capsule 325 mg PO Q4H PRN fever or 02/08/24 postoperative pain #60 caps glipizide 5 mg tablet 5 mg PO DAILY #60 tabs 07/02/24 Held on 10/13/24. Instructions: Resume on 10/28/24. hold till primary care visit amlodipine 2.5 mg tablet 2.5 mg PO DAILY #90 tabs 10/15/24 oxybutynin chloride 5 mg tablet 5 mg PO BID #180 tabs 10/15/24 vit A 300 mcg-C 200 mg-E 27 1 tab PO DAILY #90 tabs 10/15/24 mg-lutein 2 mg and minerals tablet (Ocuvite with Lutein) insulin glargine 100 unit/mL (3 20 unit (0.2 mL) SUBCUT QAM #15 mL 10/28/24 mL) subcutaneous pen (Lantus Solostar U-100 Insulin) cefdinir 300 mg capsule 300 mg PO BID 7 days #14 caps 12/23/24 Allergies Allergy/AdvReac Type Severity Reaction Status Date / Time trimethoprim Allergy dizziness Verified 12/03/24 11:08 KAI Inhibitors AdvReac na Verified 12/03/24 11:08 Sulfa (Sulfonamide AdvReac dizziness Verified 12/03/24 11:08 Antibiotics) Review of Systems Const: Denies: fever(s), chills, body aches, fatigue or malaise Eyes: Denies: change in vision or blurry vision Card: Denies: chest pain, palpitations, edema, lightheadedness, syncope or pre-syncope Resp: Denies: dyspnea GI: Denies: abdominal pain, nausea, vomiting or diarrhea : Denies: flank pain or dysuria Musc: Denies: neck pain, back pain, extremity pain, extremity swelling, joint pain, joint swelling or joint redness Skin/Breast: Denies: rash Neuro: Denies: headache(s), numbness in extremities, weakness in extremities, sensory changes or dizziness FOR[facility]LY [facility] ED PFSH: Medical History Depression Diabetes OAB (overactive bladder) GERD (gastroesophageal reflux disease) Hypercholesteremia Hypertension Surgical History History of colpocleisis (~02/06/24) performed by Jase at [facility] 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 History of knee surgery History of colon surgery History of hysterectomy Family History Father Diabetes Grandmother Diabetes Mother Hyperlipidemia Hypertension Social History Smoking and tobacco/nicotine status: never used tobacco/nicotine Alcohol intake: never Substance/Drug Use: never Physical Exam Const: COMMON NORMALS: no acute distress, average body habitus, patient oriented x3, no limitations, healthy appearing, alert and well nourished GENERAL APPEARANCE: cooperative ORIENTATION/CONSCIOUSNESS: Yes awake, Yes oriented to person, Yes oriented to place and Yes oriented to time OTHER: face appears flushed-states she is hot from walking outside HENMT: COMMON NORMALS: normocephalic and TM's normal bilaterally HEAD & SCALP: normal to inspection, normocephalic and hematoma (frontal); no Bae's sign and no raccoon eyes FACE & SINUS: normal facial exam TYMPANIC MEMBRANE: TM's normal bilaterally MOUTH: other (no intraoral injuries noted) Eye: COMMON NORMALS: Equal, round and reactive pupils present and EOMs intact bilaterally GENERAL EYE: appearance normal, both eyes and all related structures and normal light reflex PUPIL: Yes Equal, round and reactive pupils present DIRECT OPHTHALMOSCOPY: Yes normal light reflex Neck/C-Spine: COMMON NORMALS: full ROM GENERAL: Yes normal visual inspection CERVICAL SPINE: Yes cervical ROM normal, No pain with cervical ROM, No Cervical spine tenderness, No step off deformity and No Paracervical muscle tenderness Chest: COMMONS NORMALS: normal inspection of the chest and normal palpation of entire chest wall Resp: COMMON NORMALS: normal respiratory effort and clear to auscultation bilaterally AUSCULTATION: clear to auscultation bilaterally Cardio: COMMON NORMALS: regular rate and regular rhythm RATE: regular rate RHYTHM: regular rhythm GI: COMMON NORMALS: Normal to inspection, nondistended, normoactive bowel sounds present, Soft to palpation, non-tender, No hepatosplenomegaly present and no masses INSPECTION: Yes normal to inspection and No abdominal wall ecchymosis AUSCULTATION: Yes normoactive bowel sounds PALPATION: Yes Soft to palpation and Yes No hepatosplenomegaly present Back/Pelvis: COMMON NORMALS: thoracic and lumbar spine normal to inspection, no thoracic nor lumbar tenderness and thoraco-lumbar ROM normal Extremity: COMMON NORMALS: normal to inspection and full ROM GENERAL: Yes normal exam except as noted LEFT LOWER EXTREMITY: Yes knee joint (mild anterior abrasion) Left knee: Yes palpation (no tenderness) and Yes ROM (normal) Neuro: GAYE COMA SCALE: document GCS findings Gaye coma scale eye opening: Spontaneous Gaye coma scale verbal response: Orientated Gaye coma scale motor response: Obey commands Gaye coma scale total score: 15 COMMON NORMALS: patient oriented x3, CN's II-XII intact bilaterally, moves all extremities, no focal motor deficits and no sensory deficits noted SENSORIUM/ORIENTATION: Yes alert, Yes oriented to person, Yes oriented to place and Yes oriented to time SPEECH: speech normal GAIT: Yes Normal gait present Skin: COMMON NORMALS: no rashes or lesions noted GENERAL SKIN EXAM: no rashes or lesions noted TRAUMA: no lacerations or abrasions Course Vital Signs: Vital signs: Vital Signs Temperature 97.7 F 12/23/24 12:44 Pulse Rate 101 H 12/23/24 12:44 Respiratory Rate 16 12/23/24 12:44 Blood Pressure 141/106 12/23/24 12:44 Pulse Oximetry 93 12/23/24 12:44 Oxygen Delivery Me thod Room Air 12/23/24 12:44 MDM - Head Injury Medcial Decision Making CT imaging of her head and cervical spine were unremarkable. Vital signs are stable. Blood work overall is nonactionable. UA suspicious for cystitis with a cloudy appearance, positive nitrates, 2+ leukocyte esterase, 50-100 WBCs, and 4+ bacteria. She was given Rocephin prior to discharge and placed on Cefdinir. Return to ED precautions discussed. Otherwise she can follow-up with primary care. Medical Records I reviewed the patient's medical records. Lab Data I reviewed the patient's lab results. 12/23/24 13:11 12/23/24 13:11 Radiology Impressions Cervical Spine CT 12/23/24 12:55 IMPRESSION: 1. No CT evidence of acute cervical spine traumatic injury. 2. Additional findings, as above. Head CT 12/23/24 12:55 IMPRESSION: 1. No CT evidence of acute intracranial pathology. 2. Additional findings, as above. Laboratory Results WBC 7.00 10^3/uL (3.29-11.43) 12/23/24 13:11 RBC 5.11 10^6/uL (3.85-5.65) 12/23/24 13:11 Hgb 13.20 g/dL (11.27-16.99) 12/23/24 13:11 Hct 40.6 % (36-47) 12/23/24 13:11 MCV 79.5 fl (85-98) L 12/23/24 13:11 MCH 25.8 pg (27-33) L 12/23/24 13:11 MCHC 32.5 g/dL (30-55) 12/23/24 13:11 RDW 15.4 % (12.1-15.1) H 12/23/24 13:11 Plt Count 167 10^3/cmm (157-399) 12/23/24 13:11 MPV 10.2 fL (7.4-10.4) 12/23/24 13:11 Neut % (Auto) 71.4 % 12/23/24 13:11 Lymph % (Auto) 14.0 % 12/23/24 13:11 [place] % (Auto) 7.9 % 12/23/24 13:11 Eos % (Auto) 5.4 % 12/23/24 13:11 Baso % (Auto) 0.9 % 12/23/24 13:11 Neut # (Auto) 5.00 10^3/uL (1.8-7.7) 12/23/24 13:11 Lymph # (Auto) 1.0 10^3/uL (0.8-4.8) 12/23/24 13:11 [place] # (Auto) 0.6 10^3/uL (0.2-0.9) 12/23/24 13:11 Eos # (Auto) 0.4 10^3/uL (0.0-0.8) 12/23/24 13:11 Baso # (Auto) 0.1 10^3/uL (0.0-0.1) 12/23/24 13:11 Nucleated RBC % (auto) 0 % 12/23/24 13:11 Nucleated RBCs # 0.0 /100WBC 12/23/24 13:11 Sodium 136 mmol/L (136-145) 12/23/24 13:11 Potassium 4.4 mmol/L (3.5-5.1) 12/23/24 13:11 Chloride 103 mmol/L (98-107) 12/23/24 13:11 Carbon Dioxide 18 mmol/L (22-29) L 12/23/24 13:11 Anion Gap 19.4 (5-19) H 12/23/24 13:11 BUN 23 mg/dL (8-23) 12/23/24 13:11 Creatinine 0.9 mg/dL (0.5-0.9) 12/23/24 13:11 GFR Calculation Not Reportable 12/23/24 13:11 Glucose 210 mg/dL (65-115) H 12/23/24 13:11 Calculated Osmolality 292 mOsm/kg (285-295) 12/23/24 13:11 Calcium 10.6 mg/dL (8.5-10.5) H 12/23/24 13:11 Total Bilirubin 1.0 mg/dL (0.15-1.2) 12/23/24 13:11 AST 14 U/L (0-32) 12/23/24 13:11 ALT 13 U/L (0-33) 12/23/24 13:11 Alkaline Phosphatase 108 U/L (35-105) H 12/23/24 13:11 Total Protein 7.1 g/dL (6.6-8.7) 12/23/24 13:11 Albumin 4.4 g/dL (3.5-5.2) 12/23/24 13:11 Globulin 2.7 g/dL (1.3-4.6) 12/23/24 13:11 Urine Color Dark yellow (Yellow) A 12/23/24 13:40 Urine Appearance Cloudy (CLEAR) A 12/23/24 13:40 Urine pH 5.0 (5-7) 12/23/24 13:40 Ur Specific [place] 1.019 (1.005-1.030) 12/23/24 13:40 Urine Protein 1+ (Negative) A 12/23/24 13:40 Urine Glucose (UA) Negative (Normal) 12/23/24 13:40 Urine Ketones Trace (Negative) 12/23/24 13:40 Urine Blood Negative (Negative) 12/23/24 13:40 Urine Nitrate Positive (Negative) A 12/23/24 13:40 Urine Bilirubin Negative (Negative) 12/23/24 13:40 Urine Urobilinogen 1.0 mg/dL (Negative) 12/23/24 13:40 Ur Leukocyte Esterase 2+ (Negative) A 12/23/24 13:40 Urine RBC 0-2 /hpf (0-2) 12/23/24 13:40 Urine WBC 51-100 /hpf (0-5) H 12/23/24 13:40 Ur Squamous Epith Cells 0-5 /hpf (0-5) 12/23/24 13:40 Amorphous Sediment Not Reportable 12/23/24 13:40 Urine Bacteria 4+ /hpf (NONE) H 12/23/24 13:40 Hyaline Casts 9.07 /lpf 12/23/24 13:40 All radiology interpretation(s) finalized by discharge Discharge Plan Discharge Patient Disposition: Home Clinical Impression: Acute UTI Fall Qualifiers: Encounter type: initial encounter Qualified Code(s): W19.XXXA - Unspecified fall, initial encounter Forehead contusion Qualifiers: Encounter type: initial encounter Qualified Code(s): S00.83XA - Contusion of other part of head, initial encounter Condition: Stable Prescriptions: New cefdinir 300 mg capsule 300 mg PO BID 7 Days Qty: 14 0RF No Action aspirin 81 mg tablet,delayed release (DR/EC) 81 mg PO QAM glipizide 5 mg tablet 5 mg PO DAILY Qty: 60 1RF oxybutynin chloride 5 mg tablet 5 mg PO BID Qty: 180 3RF amlodipine 2.5 mg tablet 2.5 mg PO DAILY Qty: 90 2RF Ocuvite with Lutein 300 mcg-200 mg-27 mg-2 mg tablet 1 tab PO DAILY Qty: 90 3RF Rx Instructions: administer after a meal insulin glargine [Lantus Solostar U-100 Insulin] 100 unit/mL (3 mL) insulin pen 20 unit SUBCUT QAM Qty: 15 4RF acetaminophen 325 mg capsule 325 mg PO Q4H PRN (Reason: fever or postoperative pain) Qty: 60 0RF metformin 500 mg tablet 500 mg PO DAILY potassium chloride 10 mEq capsule, extended release 10 meq PO DAILY sertraline 50 mg tablet 50 mg PO DAILY Discharge Orders: Discharge ED (Routine); Ordered 12/23/24 Ordered By: Lauren Guerrero Referrals: Yusuf Currie MD [Primary Care Provider, Family Practice] Patient Instructions: Urinary Tract Infection in Older Adults (ED), Patient Portal & [place] Instructions Activity Restrictions/Additional Instructions: CT imaging of your head and neck following your fall were unremarkable. You were found to have a urinary tract infection. You were given antibiotics prior to discharge and will place on antibiotics over the next week. You need to return to the emergency department or follow-up with primary care for continued weakness, flank pain, vomiting, inability to tolerate your antibiotics, fevers, or any other concerns you may have. Print Language: Latvian Coding Level of Care Code ED Guide Plant for [place]
[2024-12-23 13:21] LABS: Basophils # 0.1 10^3/uL (0.0-0.1); Basophils % 0.9 %; Eosinophils # 0.4 10^3/uL (0.0-0.8); Eosinophils % 5.4 %; Hematocrit 40.6 % (36-47); Mean Corpuscular HGB Conc 32.5 g/dL (30-55); Mean Corpuscular Hemoglobin 25.8 pg (27-33); Mean Corpuscular Volume 79.5 fl (85-98); Mean Platelet Volume 10.2 fL (7.4-10.4); Monocytes # 0.6 10^3/uL (0.2-0.9); Monocytes % 7.9 %; Neutrophils % 71.4 %; Nucleated Red Blood Cells % 0 %; Platelet Count 167 10^3/cmm (157-399); Red Blood Count 5.11 10^6/uL (3.85-5.65); Red Cell Distribution Width 15.4 % (12.1-15.1)
[2024-12-23] MEDS: sodium chloride 0.9% 1,000 ML 999 ML IV (13:27)
[2024-12-23 13:34] LABS: Alanine Aminotransferase 13 U/L (0-33); Albumin Level 4.4 g/dL (3.5-5.2); Alkaline Phosphatase 108 U/L (35-105); Anion Gap 19.4 (5-19); Aspartate Amino Transferase 14 U/L (0-32); Blood Urea Nitrogen 23 mg/dL (8-23); Calcium 10.6 mg/dL (8.5-10.5); Carbon Dioxide 18 mmol/L (22-29); Chloride 103 mmol/L (98-107); Globulin 2.7 g/dL (1.3-4.6); Glucose 210 mg/dL (65-115); Osmolality Calculated 292 mOsm/kg (285-295); Potassium 4.4 mmol/L (3.5-5.1); Sodium 136 mmol/L (136-145); Total Protein 7.1 g/dL (6.6-8.7)
[2024-12-23 13:50] LABS: Bilirubin Urine Negative (Negative); Blood Urine Negative (Negative); Glucose Urine UA Negative (Normal); Ketones Urine Trace (Negative); Leukocyte Esterase Urine 2+ (Negative); Nitrate Urine Positive (Negative); Protein Urine 1+ (Negative); Specific Gravity, Urine 1.019 (1.005-1.030); Urine Appearance Cloudy (CLEAR); Urine Color Dark Yellow (Yellow)
[2024-12-23 13:52] LABS: Add Urine Microscopic? YES; Bacteria Urine 4+ /hpf; Hyaline Casts Urine 9.07 /lpf; RBC Urine 0-2 /hpf (0-2); Squamous Epithelial Cell Urine 0-5 /hpf (0-5); WBC Urine 51-100 /hpf (0-5)
[2024-12-23 14:21] LABS: UA Slide Review UA Slide Review Perf
[2024-12-23 14:22] LABS: Add Urine Culture? Yes
[2024-12-23] MEDS: cefTRIAXone 1,000 mg SDV 1000 MG IVP (14:57)
[2024-12-23 15:21] VITALS: PULSE 70; O2SAT 94
== END 2024-12-23 15:22 | disposition home or self-care (01) ==
PROVIDERS: Emergency Provider Physician Assistant; PCP Family Medicine
DX: S00.83XA Contusion of other part of head, initial encounter (principal); W19.XXXA Unspecified fall, initial encounter; N39.0 Urinary tract infection, site not specified; Z79.84 Long term (current) use of oral hypoglycemic drugs; Z79.4 Long term (current) use of insulin; Z79.82 Long term (current) use of aspirin; E11.9 Type 2 diabetes mellitus without complications; I10 Essential (primary) hypertension
CPT/HCPCS: 36415; 70450; 72125; 80053; 81001; 85025; 87077; 87086; 87186; 96361; 96374; 99285; J0696; J7030

== ENCOUNTER → 2025-04-22 12:19 | Outpatient (BNVA) | payer MEDICARE, SELFPAY | PROVIDERS: PCP Family Medicine; Visit Provider Family Medicine | DX: E11.9 Type 2 diabetes mellitus without complications (principal); Z79.4 Long term (current) use of insulin | CPT/HCPCS: 80053; 83036 ==